=== PATIENT | male | born 1955 | race Caucasian/White ===

== ENCOUNTER → 2016-05-12 | Outpatient (REF) | payer OTHER ==
[~2016-05-12] MED LIST: /ADVA50050 IN; /MOXI40TA PO; /PANT40TA PO; ADV250INH INH; ALB2.5NEB INH; ALBU0.5N IN; ALBU17IN INH; ALBU83IN INH; ALDA25TA2 PO; ALEV220C2 PO; ASPI1TAB PO; ASPI325T PO; ASPI81TA4 PO; CEFT500T PO; CHLORTHALIDONE PO; CLAR10CA3 PO; COMBAER6 INH; COMBIN INH; COMBVENT INH; DELT1TAB PO; DIGO0.12 PO; DOXY150C PO; ELIQ5TAB PO; EQ A1TAB12 PO; FLUT22IN INH; FURO40TA2 PO; IPRA2IN INH; IPRASOL4 INH; K-TA1TAB PO; LEVA500T PO; LEVO100T7 PO; LEVO75TA4 PO; LIPI80TA PO; LISI10TA4 PO; LOPR1TAB7 PO; METF500T PO; METO-207 PO; MICR10CA PO; MUCI600T34 PO; NEUR300C PO; NICO21DI4 TD; NITR4TASL SL; PLAV75TA38 PO; POTA95TA PO; POTA99TA PO; PRAV40TA2 PO; PRED10TA PO; PRED10TA2 PO; PRED20TA PO; SIMV40TA2 PO; SPIR1CAP INH; SPIRIVA INH; SYMB16INH INH; TIOT18INH INH; TOPR50TA PO; TUMS500C PO; TYLE325T5 PO; VITA100041 PO; VITACAP31 PO; VITAD1000T PO; VITAMIN D50000 UNT OR; ZEST1TAB5 PO; ZITH250T PO
[2016-05-12 13:22] LABS: ALBUMIN 3.7 GM/DL (3.2-5.2); ALBUMIN/GLOBULIN RATIO 1.16 (1.00-1.93); ALKALINE PHOSPHATASE 71 U/L (45-117); ALT/SGPT 25 U/L (12-78); ANION GAP 9 MEQ/L (8-16); AST/SGOT 14 U/L (15-37); BILIRUBIN,TOTAL 0.5 MG/DL (0.2-1.0); BLOOD UREA NITROGEN 17 MG/DL (7-18); CALCIUM LEVEL 8.8 MG/DL (8.8-10.2); CARBON DIOXIDE LEVEL 35 MEQ/L (21-32); CHLORIDE LEVEL 98 MEQ/L (98-107); CREATININE FOR GFR 1.14 MG/DL (0.70-1.30); FREE T4 1.03 NG/DL (0.76-1.46); GLOMERULAR FILTRATION RATE > 60.0 (>49); GLUCOSE, FASTING 103 MG/DL (80-110); POTASSIUM SERUM 4.5 MEQ/L (3.5-5.1); SODIUM LEVEL 142 MEQ/L (136-145); TOTAL PROTEIN 6.9 GM/DL (6.4-8.2)
== END ==
LOC: M SFHCADAM 09:40
PROVIDERS: ATTEND Family Medicine
DX: E11.9 Type 2 diabetes mellitus without complications (principal); E03.9 Hypothyroidism, unspecified

== ENCOUNTER 2016-06-01 15:49 | Inpatient (IN) | payer OTHER ==
[~2016-06-01] VITALS: Ht 188 cm; Wt 150.5 kg
[2016-06-01] MEDS ORDERED: SPIR25TA2 PO (16:16)
[2016-06-01] MEDS ORDERED: AMIO20TA PO (16:16)
[2016-06-01] MEDS: METOPROLOL 5 MG/5 ML VIAL IV SCH ×3 (17:45→18:12)
[2016-06-01 17:50] LABS: INR 1.09
[2016-06-01 17:53] LABS: BASO % 0.3 % (0.0-1.0); EOS # 0.2 K/mm3 (0.0-0.50); EOS % 1.5 % (0.0-3.0); LARGE UNSTAINED CELL # 0.3 K/mm3 (0.0-0.4); LYMPH # 1.6 K/mm3 (1.5-4.5); LYMPH % 14.6 % (24.0-44.0); MEAN CORPUSCULAR HEMOGLOBIN 32.7 pg (27.0-33.0); MEAN CORPUSCULAR HGB CONC 32.9 g/dl (32.0-36.5); MEAN CORPUSCULAR VOLUME 99.2 fl (80.0-96.0); MONO # 0.6 K/mm3 (0.0-0.8); MONO % 5.5 % (0.0-5.0); NEUTROPHILS # 8.4 K/mm3 (1.8-7.7); NEUTROPHILS % 75.1 % (36.0-66.0); PLATELET COUNT, AUTOMATED 192 k/mm3 (150-450); RED CELL DISTRIBUTION WIDTH 12.6 % (11.5-14.5); WHITE BLOOD COUNT 11.2 K/mm3 (4.0-10.0)
[2016-06-01 17:57] LABS: ANION GAP 5 MEQ/L (8-16); BLOOD UREA NITROGEN 21 MG/DL (7-18); CALCIUM LEVEL 8.4 MG/DL (8.8-10.2); CARBON DIOXIDE LEVEL 34 MEQ/L (21-32); CHLORIDE LEVEL 101 MEQ/L (98-107); CREATININE FOR GFR 1.28 MG/DL (0.70-1.30); FREE T4 1.05 NG/DL (0.76-1.46); GLOMERULAR FILTRATION RATE > 60.0 (>49); GLUCOSE, FASTING 131 MG/DL (80-110); POTASSIUM SERUM 3.7 MEQ/L (3.5-5.1); SODIUM LEVEL 140 MEQ/L (136-145)
[2016-06-01] MEDS ORDERED: MUCI1TAB18 PO (18:13)
[2016-06-01] MEDS ORDERED: BENZ100C5 PO (18:13)
[2016-06-01] MEDS ORDERED: METO100T PO (18:13)
[2016-06-01] MEDS ORDERED: ELIQ5TAB PO (18:13)
[2016-06-01] MEDS ORDERED: ASPI1TAB PO (18:13)
[2016-06-01] MEDS ORDERED: LISI-542 PO (18:13)
--- NOTE | 2016-06-01 18:26 | REP ---
CHEST, PA AND LATERAL: COMPARISON: 03/20/2016, a portable exam. The increased interstitial markings seen on the prior examination are stable consistent with mild chronic fibrotic changes. No acute patchy parenchymal opacities or pleural effusions have developed. The cardiomediastinal silhouette is stable. The heart is mildly enlarged. The right CP angle is clear. The left CP angle has not been included on the radiograph. The osseous structures are stable and intact. IMPRESSION: Stable appearing chronic changes without plain radiographic evidence of acute cardiopulmonary disease. Signed by Yonny Watkins DO 06/01/2016 07:08 P
[2016-06-01] MEDS: HumaLOG INSULIN (NovoLOG) PER UNIT SC SCH (21:00)
[2016-06-01 22:48] VITALS: BP 131/90
[2016-06-01 23:59] VITALS: BP 98/60
[2016-06-02] VITALS (11 sets, daily range): BP systolic 116–143; BP diastolic 63–95
[2016-06-02] MEDS ORDERED: GLUCOSE 4 GM CHEW TABLET PO PRN
[2016-06-02] MEDS ORDERED: GLUCAGON FOR INJ 1 MG VIAL (J1610) SC PRN
[2016-06-02] MEDS: ATORVASTATIN 20 MG TAB PO SCH ×2 (00:36→21:53)
[2016-06-02] MEDS: FUROSEMIDE 40 MG TAB PO SCH ×3 (00:36→21:54)
[2016-06-02] MEDS: APIXABAN 5 MG TAB (ELIQUIS) PO SCH ×3 (00:36→21:54)
[2016-06-02] MEDS: AMIODARONE 200 MG TAB (PACERONE) PO SCH ×3 (00:37→21:53)
[2016-06-02] MEDS: METOPROLOL TARTRATE 100 MG TAB PO SCH ×3 (00:37→21:54)
[2016-06-02] MEDS ORDERED: DEXTROSE 50% 50 ML SYRINGE IV PRN ×2 (01:30)
[2016-06-02] MEDS: SYMBICORT 160/4.5MCG INHALER 6GM INH SCH ×3 (01:43→20:59)
--- NOTE | 2016-06-02 03:05 | HPE ---
DATE OF ADMISSION: 06/01/2016 REASON FOR ADMISSION: Atrial flutter. HISTORY OF PRESENT ILLNESS: The patient is a 61-year-old male with past medical history significant for COPD on two liters nasal cannula, obstructive sleep apnea on CPAP, atrial fibrillation, history of NC, diabetes, hypothyroidism, diastolic congestive heart failure presented to the emergency room from Dr. Mahoney office who instructed him to come to the emergency room. He went for a routine visit, she found him to be tachycardiac and short of breath. He was not on his oxygen at the time stating he was running low and left it in the car. He normally wears four liters of oxygen with activity and two liters at rest. He presented to the emergency room. He was found to be hypoxic and in atrial flutter with a rate into the 130s. Hospitalist was called for the admission. The patient denied any chest pain at this time. Denies any headaches, diaphoresis. Denies any shortness of breath. He is currently satting 97% on four liters nasal cannula. REVIEW OF SYSTEMS: 12-point review of systems was obtained all of which was negative except for those mentioned above. PAST MEDICAL HISTORY: Significant for COPD on four liters nasal cannula, obstructive sleep apnea on CPAP, atrial fibrillation, diabetes, hypothyroidism, congestive heart failure with diastolic dysfunction, CAD was cardiac stents, NC in 2013, hypertension, hyperlipidemia, history of PE. PAST SURGICAL HISTORY: Significant for cardiac stent and back surgery L3-4, IVC filter placement, left wrist surgery and vasectomy. ALLERGIES TO MEDICATIONS: None. MEDICATIONS: Include metformin, aspirin, spironolactone, Lasix, metoprolol, levothyroxine, Eliquis, atorvastatin, amiodarone and lisinopril. SOCIAL HISTORY: The patient states he has history of smoking one pack per day for 40 years but quit three months ago. He states he drinks about one to two beers a day. Lives at home with his and child. FAMILY HISTORY: Noncontributory. PHYSICAL FINDINGS: Blood pressure was 135/95, pulse 117-129, temperature 97.2, pulse ox 95% on four liters nasal cannula. HEENT: Pupils equal, round and react to light and accommodation. NECK: Supple. No jugular venous distention. LUNGS: Clear to auscultation bilaterally. CARDIAC: Tachycardiac, regular rate and rhythm. ABDOMEN: Soft, nontender, nondistended. EXTREMITIES: +2 edema bilaterally. NEURO: Cranial nerves II-XII grossly intact. No focal deficits. LABORATORY FINDINGS: WBCs 11.2, hemoglobin 13.9, hematocrit 42.2, platelet count 192. Sodium 140, potassium 3.7, chloride 101, BUN 21, creatinine 1.28, fasting glucose 131, TSH 2.96, T4 1.05, BNP 26.6, troponin less than 0.02. Chest x-ray was done in the emergency room which showed stable appearing chronic changes without plane radiographic evidence of acute cardiopulmonary disease. ASSESSMENT AND PLAN: 1. Atrial flutter. The patient normally has history of atrial fibrillation. He was on digoxin in the past and was switched two months ago to amiodarone. He is also on Eliquis and metoprolol. He sees Dr. Alcaraz outpatient. He was to be scheduled for cardioversion in two weeks, but he presented to Dr. Mahoney office today and was found to be tachycardic and was sent to the hospital. Will defer to primary care team to consult cardiology. His rate is currently in the 117-120 range. He denies any chest pain at this time. We will resume the patient's home medication. Continue to monitor on telemetry. 2. History of COPD on four liters. Patient is currently satting in the mid 90s on four liters. We will continue while he is in the hospital. 3. History of obstructive sleep apnea. Continue CPAP. 4. History of diabetes. We will start the patient on insulin sliding scale with Accu-Cheks before meals and at bedtime and consistent carb diet. 5. Hypothyroidism. The patient is on levothyroxine; we will continue. His TSH is 2.96 and T4 1.05. 6. History of diastolic congestive heart failure. He currently appears to be compensating, does not appear to be in any acute congestive heart failure exacerbation. We will continue his spironolactone and Lasix on regular doses. 7. History of coronary artery disease status post filter 8. History of hypertension. 9. History of hyperlipidemia. 10. History of PE status post IVC filter. The patient is also on Eliquis at this time. 11. DVT prophylaxis. The patient's Eliquis.
[2016-06-02 05:55] LABS: MEAN CORPUSCULAR HEMOGLOBIN 32.8 pg (27.0-33.0); MEAN CORPUSCULAR HGB CONC 32.7 g/dl (32.0-36.5); MEAN CORPUSCULAR VOLUME 100.1 fl (80.0-96.0); RED CELL DISTRIBUTION WIDTH 12.5 % (11.5-14.5); WHITE BLOOD COUNT 9.7 K/mm3 (4.0-10.0)
[2016-06-02 06:12] LABS: ALBUMIN/GLOBULIN RATIO 0.79 (1.00-1.93); ALKALINE PHOSPHATASE 58 U/L (45-117); ALT/SGPT 16 U/L (12-78); ANION GAP 5 MEQ/L (8-16); AST/SGOT 12 U/L (15-37); BILIRUBIN,TOTAL 0.5 MG/DL (0.2-1.0); BLOOD UREA NITROGEN 16 MG/DL (7-18); CALCIUM LEVEL 8.4 MG/DL (8.8-10.2); CARBON DIOXIDE LEVEL 34 MEQ/L (21-32); CHLORIDE LEVEL 101 MEQ/L (98-107); CREATININE FOR GFR 0.92 MG/DL (0.70-1.30); GLOMERULAR FILTRATION RATE > 60.0 (>49); GLUCOSE, FASTING 108 MG/DL (80-110); POTASSIUM SERUM 3.8 MEQ/L (3.5-5.1); SODIUM LEVEL 140 MEQ/L (136-145); TOTAL PROTEIN 6.8 GM/DL (6.4-8.2)
[2016-06-02] MEDS: LEVOTHYROXINE 0.075 MG TAB (75 MCG) PO SCH (06:43)
[2016-06-02] MEDS: TIOTROPIUM INHALER/CAPSULE (SPIRIVA) INH SCH (07:26)
[2016-06-02] MEDS ORDERED: HumaLOG INSULIN (NovoLOG) PER UNIT SC SCH ×2 (07:30→21:00)
[2016-06-02] MEDS: HumaLOG INSULIN (NovoLOG) PER UNIT SC SCH ×4 (08:16→21:49)
[2016-06-02] MEDS: SPIRONOLACTONE 25 MG TAB PO SCH (08:17)
[2016-06-02] MEDS: ASPIRIN 81 MG ENTERIC TAB PO SCH (08:17)
[2016-06-02] MEDS: METOPROLOL 5 MG/5 ML VIAL IV SCH (08:18)
[2016-06-02] MEDS: ALBUTEROL SULFATE 2.5 MG/0.5 ML INH NEB SOLN NEB PRN ×4 (08:32→23:15)
--- NOTE | 2016-06-02 08:44 | CR ---
DATE OF CONSULTATION: 06/01/2016 REFERRING PHYSICIAN: Dr. Langley HISTORY OF PRESENT ILLNESS: Mr. Marquez is known to me. He is a 61-year-old, morbidly obese man who has chronic obstructive pulmonary disease (COPD) and also has had persistent atrial fibrillation/flutter since March 2016. He was actually seen in my office yesterday, but later was seen in the office of Dr. Mahoney and was sent to the hospital because of dyspnea. He does have [place] [employer] Class III almost IV dyspnea which has been chronic. He denies any chest pain and there have not been any unusual events as of lately. He was found in the emergency room to be in atrial flutter with suboptimally controlled rate typically averaging around 110 beats per minute. He was already set up for direct current (DC) cardioversion on an outpatient basis, but now when he is hospitalized, will proceed with it immediately. PAST MEDICAL HISTORY: 1. Severe COPD. The last spirometry in April 2016 revealed 49% FVC and 25% FEV-1 2. Obstructive sleep apnea, on CPAP. 3. Hypertension. 4. Coronary artery disease. 5. Obesity. 6. Type 2 diabetes. 7. Remote history of pulmonary embolism. 8. Chronic diastolic congestive heart failure. Last echocardiogram was in March 2016 at [facility] ([facility] It was a somewhat limited study corresponding to his body weight, but revealed preserved left ventricular systolic function, grade 2 diastolic dysfunction, no valvular disease, and at least moderate pulmonary hypertension. OUTPATIENT MEDICATIONS: - amiodarone 200 twice a day - albuterol - aspirin 81 a day - Lipitor 80 a day - Combivent - Eliquis 5 twice a day - Flovent - furosemide 40 mg twice a day - levothyroxine 75 a day - metformin - metoprolol 100 twice a day - nitroglycerin as needed - spironolactone 25 a day - Symbicort - Ventolin SURGICAL HISTORY: Positive for L3-4 discectomy and fracture repair of left arm. FAMILY HISTORY: Positive for coronary artery disease (CAD). His father of myocardial infarction ([place]) in his 60s and brother had congestive heart failure (CHF) and atrial fibrillation and in his 50s. SOCIAL HISTORY: The patient is . He was a smoker, but quit in March 2016. REVIEW OF SYSTEMS: He does have shortness of breath, worse with laying down, but denies any chest pain or palpitations. There is no history of stroke or history of bleeding problems. No significant weight changes, even though he did put on weight lately after he quit smoking. No genitourinary symptoms. No janet bleeding. He has chronic back pain. No headaches. No psychiatric symptoms. PHYSICAL EXAMINATION: Vital signs this morning with blood pressure 130/95. Heart rate fluctuates from 80s to 120s, but on average is 110. He has atrial flutter with variable AV conduction. Saturation is in high 90s on 4 liters of oxygen by nasal cannula. His jugular venous pulse (JVP) does not look high. Lungs are relatively clear to auscultation. Heart exam reveals muffled heart sounds corresponding to his large body habitus, but I do not appreciate any murmur, gallop or rub. Abdomen is obese, but soft and nontender. Extremities have trace edema. Neurologically, he is alert and oriented and appropriate. I do not appreciate any skin lesions. ECG: Reveals atrial flutter with variable conduction and uncontrolled rate. LABORATORY: Hemoglobin 30.3, hematocrit 40 and platelet count 184,000. WBC 9.7. Basic metabolic panel with potassium 3.8, BUN 16, creatinine 0.9, glucose 108. Cardiac enzymes negative times two. Albumin is 3.0. His chest x-ray reveals chronic fibrotic changes, but no definite congestive heart failure. ASSESSMENT AND PLAN: Mr. Marquez is a 61-year-old man who has advanced chronic obstructive pulmonary disease (COPD) and more recently complicated with atrial flutter which is not well rate-controlled. He has been anticoagulated for almost two months consistently and he also has been on amiodarone for over a month. Consequently, I believe it is appropriate to proceed with DC cardioversion, which is probably the only intervention from my field that potentially can improve his symptoms. We already talked about this on an outpatient basis yesterday, but I had him sign the same consent in the hospital and will try to arrange for the procedure later this afternoon. I explained that there are potential complications including pneumonia and stroke and potentially even need for pacemaker, but I do believe that the procedure gives him the only chance to actually start feeling slightly better. Otherwise, I would continue his chronic medications. He probably will need adjusted beta-claudio doses depending on his heart rate while he is in sinus rhythm.
[2016-06-02] MEDS ORDERED: LISINOPRIL 5 MG TAB PO SCH (09:00)
--- NOTE | 2016-06-02 09:16 | IPNPDOC ---
Subjective Date Seen The patient was seen on 06/02/16. Subjective Chief Complaint/HPI The patient is a 61-year-old male admitted with a reason for visit of Atrial Flutter W/Rvr. Events since last encounter No SOB. Feels generally well. Constitutional: Denies: Chills, Fever Pulmonary: Denies: Cough, Dyspnea Cardiovascular: Denies: Chest Pain, Edema, Orthopnea, Palpitations Gastrointestinal: Denies: Abdominal Pain, Constipation, Diarrhea, Nausea, Vomiting Objective Physical Examination General Exam: Positive: Alert, No Acute Distress Chest Exam: Positive: Diminished (NO W/R/R) Heart Exam: Positive: Irregular Rhythm (rate 102) Abdomen Exam: Positive: Normal bowel sounds, Soft, Negative: Tenderness Male Exam: Negative: Edema Assessment /Plan Problems (1) Atrial flutter with rapid ventricular response Status: Acute Response to Treatment: Improving Problem Text: HR a little better since receiving IV Lopressor x 1 last night and oral Metoprolol this am. Dr. Parish seeing patient in consultation Remains on Amiodarone On eliquis for anticoagulation (2) COPD exacerbation Onset Date: 03/26/2014 Status: Chronic Response to Treatment: Stable (3) Diastolic CHF, acute on chronic Status: Chronic Response to Treatment: Stable Problem Text: On Lasix 40 mg BID (4) Diabetes mellitus type 2 in obese Status: Chronic Response to Treatment: Stable (5) Coronary artery disease Status: Chronic Response to Treatment: Stable Plan/VTE VTE Prophylaxis Ordered?: Yes (Eliquis) VS, I&O, 24H, Fishbone Vital Signs/I&O Vital Signs Date Time Temp Pulse Resp B/P Pulse Ox O2 Delivery O2 Flow Rate FiO2 06/02/16 08:18 87 130/95 06/02/16 07:59 Nasal Cannula 4.0 06/02/16 07:30 96.2 22 93 I&O- Last 24 Hours up to 6 AM 06/02/16 06:00 Intake Total 180 ml Output Total 400 ml Balance -220 ml Laboratory Data 24H LABS Laboratory Tests 2 06/01/16 16:59: Activated Partial Thromboplast Time 28.1, Anion Gap 5L, B-Type Natriuretic Peptide 26.6, White Blood Count 11.2H, Red Blood Count 4.26L, Hemoglobin 13.9L, Hematocrit 42.2, Mean Corpuscular Volume 99.2H, Mean Corpuscular Hemoglobin 32.7 , Mean Corpuscular Hemoglobin Concent 32.9, Red Cell Distribution Width 12.6, Platelet Count 192, Neutrophils (%) (Auto) 75.1H, Lymphocytes (%) (Auto) 14.6L, Monocytes (%) (Auto) 5.5H, Eosinophils (%) (Auto) 1.5, Basophils (%) (Auto) 0.3 , Neutrophils # (Auto) 8.4H, Lymphocytes # (Auto) 1.6, Monocytes # (Auto) 0.6, Eosinophils # (Auto) 0.2, Basophils # (Auto) 0.0, Blood Urea Nitrogen 21H, Creatinine 1.28, Sodium Level 140, Potassium Level 3.7, Chloride Level 101, Carbon Dioxide Level 34H, Calcium Level 8.4L, Total Creatine Kinase 93, Creatine Kinase MB 2.1, Creatine Kinase MB Relative Index 2.25, Free Thyroxine 1.05, Glomerular Filtration Rate > 60.0, Large Unclassified Cells # 0.3, Large Unclassified Cells % 3.0, Prothromb Time International Ratio 1.09, Prothrombin Time 14.2, Thyroid Stimulating Hormone (TSH) 2.960, Troponin I < 0.02 06/02/16 00:30: Bedside Glucose (Misc Panel) 167H 06/02/16 01:36: Total Creatine Kinase 85, Creatine Kinase MB 1.9, Creatine Kinase MB Relative Index 2.23, Troponin I < 0.02 06/02/16 05:30: Anion Gap 5L, Blood Urea Nitrogen 16, Creatinine 0.92, Sodium Level 140, Potassium Level 3.8, Chloride Level 101, Carbon Dioxide Level 34H, Calcium Level 8.4L, Glomerular Filtration Rate > 60.0, Aspartate Amino Transf (AST/SGOT ) 12L, Alanine Aminotransferase (ALT/SGPT) 16, Alkaline Phosphatase 58, Total Bilirubin 0.5, Total Protein 6.8, Albumin 3.0L, Albumin/Globulin Ratio 0.79L CBC/BMP Laboratory Tests 06/01/16 16:59 Calcium Level 8.4 L, Total Creatine Kinase 93, Red Blood Count 4.26 L, Mean Corpuscular Volume 99.2 H, Mean Corpuscular Hemoglobin 32.7, Mean Corpuscular Hemoglobin Concent 32.9, Red Cell Distribution Width 12.6, Neutrophils (%) (Auto ) 75.1 H, Lymphocytes (%) (Auto) 14.6 L, Monocytes (%) (Auto) 5.5 H, Eosinophils (%) (Auto) 1.5, Basophils (%) (Auto) 0.3, Neutrophils # (Auto) 8.4 H , Lymphocytes # (Auto) 1.6, Monocytes # (Auto) 0.6, Eosinophils # (Auto) 0.2, Basophils # (Auto) 0.0 06/02/16 05:30 Calcium Level 8.4 L, Red Blood Count 4.05 L, Mean Corpuscular Volume 100.1 H, Mean Corpuscular Hemoglobin 32.8, Mean Corpuscular Hemoglobin Concent 32.7, Red Cell Distribution Width 12.5, Aspartate Amino Transf (AST/SGOT) 12 L, Alanine Aminotransferase (ALT/SGPT) 16, Alkaline Phosphatase 58, Total Bilirubin 0.5, Total Protein 6.8, Albumin 3.0 L BLANCA PUGA PA-C Jun 02, 2016 09:16
[2016-06-02] MEDS ORDERED: PROPOFOL 200 MG/20 ML VIAL As Ordered ONE (16:45)
[2016-06-02] MEDS ORDERED: LIDOCAINE 2% INJ 100 MG/5 ML SDV (FOR ANES.) As Ordered ONE (16:45)
--- NOTE | 2016-06-02 19:58 | RO ---
DATE OF PROCEDURE: 06/02/2016 PREPROCEDURE DIAGNOSIS: Atrial flutter. POSTPROCEDURE DIAGNOSIS: Atrial flutter. OPERATIVE PROCEDURE: DC cardioversion. SURGEON: Radha Alcaraz MD CHECKERING MACHINE OPERATOR: None ANESTHESIA: MD Sammy Carmona CRNA BRIEF HISTORY: Mr. Marquez is a pleasant 61-year-old male who has persistent atrial flutter since at least April 2016. He has been treated with administration of amiodarone and beta claudio and in spite of accomplishing reasonable, although imperfect rate control he is still very symptomatic with prominent dyspnea. Consequently, we decided to proceed with DC cardioversion especially when he was hospitalized for worsening symptoms. The nature of the procedure, its possible complications were discussed with him and his on outpatient basis and then again during his admission. The patient did sign appropriate consent. The procedure was performed in recovery room. DESCRIPTION OF PROCEDURE: Anesthesiology was provided by Dr. Cosmo Damon and Sammy Figueredo CRNA. The patient received a total of 40 mg of IV lidocaine and 110 mg of IV propofol. When appropriate level of sedation was accomplished he was cardioverted with defibrillator patches applied in anterior position with 200 joules in a synchronized mode. It led to samaritan of sinus mechanism without post conversion pause. He tolerated the procedure well and currently 12-lead EKG is pending. CONCLUSION: Successful DC cardioversion of atrial flutter into sinus mechanism. After brief observation in recovery room he was being moved back to PCU. He will be able to resume oral intake in approximately 1 hour. [facility]
--- NOTE | 2016-06-02 20:38 | ECGEPIP ---
Stationary ECG Study 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
[2016-06-03] MEDS ORDERED: SLF 3 ML SYR IV PRN (00:15)
[2016-06-03 05:40] VITALS: BP 103/68
[2016-06-03 05:43] LABS: MEAN CORPUSCULAR HEMOGLOBIN 33.1 pg (27.0-33.0); MEAN CORPUSCULAR HGB CONC 32.9 g/dl (32.0-36.5); MEAN CORPUSCULAR VOLUME 100.6 fl (80.0-96.0); RED CELL DISTRIBUTION WIDTH 12.5 % (11.5-14.5)
[2016-06-03] MEDS: LEVOTHYROXINE 0.075 MG TAB (75 MCG) PO SCH (05:45)
[2016-06-03] MEDS: SLF 3 ML SYR IV SCH ×2 (05:45→14:00)
[2016-06-03 06:19] LABS: ALBUMIN/GLOBULIN RATIO 0.81 (1.00-1.93); ALKALINE PHOSPHATASE 59 U/L (45-117); ALT/SGPT 15 U/L (12-78); ANION GAP 8 MEQ/L (8-16); AST/SGOT 13 U/L (15-37); BILIRUBIN,TOTAL 0.4 MG/DL (0.2-1.0); BLOOD UREA NITROGEN 18 MG/DL (7-18); CALCIUM LEVEL 8.4 MG/DL (8.8-10.2); CARBON DIOXIDE LEVEL 32 MEQ/L (21-32); CHLORIDE LEVEL 101 MEQ/L (98-107); GLOMERULAR FILTRATION RATE > 60.0 (>49); GLUCOSE, FASTING 100 MG/DL (80-110); POTASSIUM SERUM 3.8 MEQ/L (3.5-5.1); SODIUM LEVEL 141 MEQ/L (136-145); TOTAL PROTEIN 6.7 GM/DL (6.4-8.2)
[2016-06-03] MEDS: HumaLOG INSULIN (NovoLOG) PER UNIT SC SCH ×3 (07:29→17:45)
[2016-06-03] MEDS: TIOTROPIUM INHALER/CAPSULE (SPIRIVA) INH SCH (07:44)
[2016-06-03] MEDS: SYMBICORT 160/4.5MCG INHALER 6GM INH SCH (07:44)
[2016-06-03 08:00] VITALS: BP 132/80
--- NOTE | 2016-06-03 08:33 | IPNPDOC ---
Subjective Date Seen The patient was seen on 06/03/16. Subjective Chief Complaint/HPI The patient is a 61-year-old male admitted with a reason for visit of Atrial Flutter W/Rvr. Events since last encounter Pt states he is feeling better. Denies CP, SOB, Abd pain. Constitutional: Denies: Chills, Fever Pulmonary: Denies: Dyspnea Cardiovascular: Denies: Chest Pain Gastrointestinal: Denies: Abdominal Pain, Nausea, Vomiting Objective Physical Examination General Exam: Positive: Alert, No Acute Distress Neck Exam: Positive: Supple, Negative: JVD Chest Exam: Positive: Diminished (NO W/R/R) Heart Exam: Positive: Rate Normal, Regular Rhythm Abdomen Exam: Positive: Normal bowel sounds, Soft, Negative: Tenderness Male Exam: Negative: Edema Extremity Exam: Negative: Edema Assessment /Plan Problems (1) Atrial flutter with rapid ventricular response Status: Acute Response to Treatment: Improving Problem Text: 06/03 - Cardiology following. Pt was cardioverted last night. Now in SR. Rate controlled. On Amiodarone 200 mg BID. On Lopressor 100 mg BID. On Eliquis 5 mg BID. 3/3 - HR a little better since receiving IV Lopressor x 1 last night and oral Metoprolol this am. Dr. Parish seeing patient in consultation Remains on Amiodarone On eliquis for anticoagulation (2) COPD exacerbation Onset Date: 03/26/2014 Status: Chronic Response to Treatment: Stable Problem Specific Plan: Monitor Clinically Problem Text: On Symbicort. (3) Diastolic CHF, acute on chronic Status: Chronic Response to Treatment: Stable Problem Specific Plan: Monitor Clinically Problem Text: On Lasix 40 mg BID (4) Diabetes mellitus type 2 in obese Status: Chronic Response to Treatment: Stable Problem Specific Plan: Monitor Clinically Problem Text: On SSI. (5) Coronary artery disease Status: Chronic Response to Treatment: Stable Problem Specific Plan: Monitor Clinically Plan/VTE VTE Prophylaxis Ordered?: Yes (Eliquis) VS, I&O, 24H, Fishbone Vital Signs/I&O Vital Signs Date Time Temp Pulse Resp B/P Pulse Ox O2 Delivery O2 Flow Rate FiO2 06/03/16 08:00 96.6 68 18 132/80 96 Nasal Cannula 4.0 I&O- Last 24 Hours up to 6 AM 06/03/16 06:00 Intake Total 600 ml Output Total 1925 ml Balance -1325 ml Laboratory Data 24H LABS Laboratory Tests 2 06/02/16 11:52: Bedside Glucose (Misc Panel) 118H 06/02/16 17:50: Bedside Glucose (Misc Panel) 93 06/02/16 20:51: Bedside Glucose (Misc Panel) 156H 06/03/16 05:03: Blood Urea Nitrogen 18, Creatinine 0.90, Sodium Level 141, Potassium Level 3.8, Chloride Level 101, Carbon Dioxide Level 32, Calcium Level 8.4L, Aspartate Amino Transf (AST/SGOT) 13L, Alanine Aminotransferase (ALT/SGPT) 15, Alkaline Phosphatase 59, Total Bilirubin 0.4, Total Protein 6.7, Albumin 3.0L, Albumin/ Globulin Ratio 0.81L, Anion Gap 8, Glomerular Filtration Rate > 60.0 CBC/BMP Laboratory Tests 06/03/16 05:03 Calcium Level 8.4 L, Aspartate Amino Transf (AST/SGOT) 13 L, Alanine Aminotransferase (ALT/SGPT) 15, Alkaline Phosphatase 59, Total Bilirubin 0.4, Total Protein 6.7, Albumin 3.0 L, Red Blood Count 4.01 L, Mean Corpuscular Volume 100.6 H, Mean Corpuscular Hemoglobin 33.1 H, Mean Corpuscular Hemoglobin Concent 32.9, Red Cell Distribution Width 12.5 Junior Solano Jun 03, 2016 08:33
[2016-06-03 09:05] VITALS: BP 132/80
[2016-06-03] MEDS: AMIODARONE 200 MG TAB (PACERONE) PO SCH (09:05)
[2016-06-03] MEDS: METOPROLOL TARTRATE 100 MG TAB PO SCH (09:05)
[2016-06-03] MEDS: FUROSEMIDE 40 MG TAB PO SCH (09:05)
[2016-06-03] MEDS: APIXABAN 5 MG TAB (ELIQUIS) PO SCH (09:05)
[2016-06-03] MEDS: SPIRONOLACTONE 25 MG TAB PO SCH (09:05)
[2016-06-03] MEDS: ASPIRIN 81 MG ENTERIC TAB PO SCH (09:05)
--- NOTE | 2016-06-03 10:40 | IPN ---
DATE OF SERVICE: 06/03/2016 Mr. Marquez tells me that he is feeling better. He is still short of breath but feels that he has more energy, was able to sleep, and overall feels that there has been some improvement. He denies any chest pain or sensation of palpitations. His vital signs: Blood pressure 132/80, heart rate is in 60s and 70s, sinus rhythm. He is afebrile. Saturation is high 90s on 4 liters of oxygen or bilateral positive airway pressure (BiPAP). Fluid balance yesterday was approximately 600 negative. Weight is still 150 kg. He is alert and oriented and appropriate. His jugular venous pressure (JVP) is difficult to estimate due to his body habitus but does not appear grossly elevated. Lungs are relatively clear to auscultations. I do not appreciate any wheezing. Heart examination: Regular rhythm. Muffled heart sound due to his size. Abdomen is soft but protuberant. There is trace edema. Neurologically, he is intact. No skin lesions. Laboratory-rubi, normal basic metabolic panel. CBC reveals hemoglobin 13.3, hematocrit 40, platelet count 181,000. ASSESSMENT AND PLAN: Mr. Marquez is a 61-year-old man who has advanced chronic obstructive pulmonary disease (COPD), undoubtedly also some component of restrictive lung disease. He presented with atrial flutter since probably about April or maybe even March. Initially, was somewhat difficult to rate control, and he was on high doses of beta blockers and was started on amiodarone a little more than a month ago. Yesterday, I performed cardioversion. The procedure was successful, and he now is in sinus rhythm. I am going to leave his medications unchanged. He has been anticoagulated with apixaban, and that will be continued. I am going to leave amiodarone at 400 mg daily for another at least a week. He did not get the initial high loading dose; and consequently, I will wait at least another week or two before we cut the dose to maintenance 200 mg a day. I do not appreciate much of any evidence for congestive heart failure. I communicated with HARMONY Adame. From my perspective, he can be discharged home. I will arrange for outpatient followup.
[2016-06-03 12:00] VITALS: BP 118/69
[2016-06-03] MEDS: ALBUTEROL SULFATE 2.5 MG/0.5 ML INH NEB SOLN NEB PRN ×2 (13:52→16:39)
[2016-06-03 16:00] VITALS: BP 90/67
--- NOTE | 2016-06-04 10:10 | DSES ---
DATE OF ADMISSION: 06/01/2016 DATE OF DISCHARGE: 06/03/2016 PRIMARY CARE PROVIDER: Bakari Langley MD ATTENDING PHYSICIAN: Karl Miller MD CONSULTANTS: Radha Alcaraz MD HISTORY OF PRESENT ILLNESS: Gilmer Marquez is a 61-year-old male patient who was transported from his pulmonology doctors to the emergency room for tachycardia and shortness of breath. Workup in the ER showed atrial flutter. 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 Alcaraz was consulted. The patient was admitted to PCU. Dr. Alcaraz performed cardioversion on the patient and the atrial flutter resolved and the patient was in sinus rhythm. Dr. Alcaraz advises leaving medications unchanged. The patient will remain on current dose of amiodarone 200 mg p.o. b.i.d., Lopressor 100 mg p.o. b.i.d., and will continue with anticoagulation with Eliquis 5 mg p.o. b.i.d. The patient, as noted, was in sinus rhythm and Dr. Alcaraz felt the patient would be stable for discharge home. The patient remained on Lasix for history of congestive heart failure. He remained on Symbicort for a history of chronic obstructive pulmonary disease (COPD). He will be discharged home today. PHYSICAL EXAMINATION: Temperature 96.6, pulse 68, respiratory rate 18, blood pressure is 132/80, pulse oximetry 96% on supplemental oxygen 4 liters by nasal cannula. GENERAL: The patient is alert, oriented times three. No acute distress. CHEST: Diminished but clear. HEART: Regular rate and rhythm. ABDOMEN: Positive bowel sounds, soft, nontender. EXTREMITIES: No edema. LABORATORY DATA: WBC 8.0, hemoglobin 13.3, hematocrit 40.3, platelets 181. Sodium 141, potassium 3.8, chloride 101, carbon dioxide 32, BUN 18, creatinine 0.90, glucose 100, calcium 8.4, total bili 0.4, AST 13, ALT 15, alk phos 59, total protein 6.7, albumin 3.0. MEDICATIONS: - albuterol puffer two puffs every 4 hours as needed for shortness of breath - albuterol nebs every 4 hours shortness of breath - Combivent two puffs four times a day as needed for shortness of breath - DuoNebs every 4 hours as needed for shortness of breath - amiodarone 200 mg by mouth twice a day - Eliquis 5 mg by mouth twice a day - aspirin 81 mg by mouth daily - atorvastatin 80 mg by mouth at bedtime - Symbicort 160-4.5 two puffs inhaled twice a day - Flovent two puffs inhaled as needed for shortness of breath - furosemide 40 mg by mouth twice a day - Synthroid 75 mcg by mouth daily - metformin 500 mg by mouth twice a day - metoprolol 100 mg by mouth twice a day - Mucinex one tablet by mouth twice a day as needed for cough - nitroglycerin 0.4 mg sublingual as needed for chest pain - spironolactone 25 mg by mouth daily - Spiriva one inhalation daily DISCHARGE INSTRUCTIONS: Followup with primary care physician, Dr. Langley in one week. Followup with Dr. Alcaraz within a week per his instructions. Diet is no added salt diet, consistent carbohydrate diet. Activity as tolerated. DISCHARGE DIAGNOSES: Atrial flutter with rapid ventricular response. Chronic obstructive pulmonary disease (COPD) exacerbation. Diastolic congestive heart failure. Diabetes mellitus type 2. Coronary artery disease. cc: MD Bakari Somers MD
== END 2016-06-03 19:11 | disposition home or self-care (01) | DRG 201 ==
LOC: M ED 17:43 → M ED INP 20:17 → M PCU 22:34
PROVIDERS: ADMIT Internal Medicine; ATTEND Family Medicine
PROC: 5A2204Z Restoration of Cardiac Rhythm, Single (ICD-10-PCS; principal; 2016-06-02 07:51)
DX: I48.92 Unspecified atrial flutter (principal); I50.33 Acute on chronic diastolic (congestive) heart failure; I27.2 Other secondary pulmonary hypertension; Z99.81 Dependence on supplemental oxygen; J44.1 Chronic obstructive pulmonary disease with (acute) exacerbation; Z68.41 Body mass index [BMI] 40.0-44.9, adult; I11.0 Hypertensive heart disease with heart failure; E66.01 Morbid (severe) obesity due to excess calories; G47.33 Obstructive sleep apnea (adult) (pediatric); I25.2 Old myocardial infarction; E03.9 Hypothyroidism, unspecified; E11.9 Type 2 diabetes mellitus without complications; I25.10 Atherosclerotic heart disease of native coronary artery without angina pectoris; E78.5 Hyperlipidemia, unspecified; Z86.711 Personal history of pulmonary embolism; Z95.5 Presence of coronary angioplasty implant and graft; Z79.84 Long term (current) use of oral hypoglycemic drugs; Z79.82 Long term (current) use of aspirin; Z79.01 Long term (current) use of anticoagulants; Z87.891 Personal history of nicotine dependence; I48.91 Unspecified atrial fibrillation; Z79.899 Other long term (current) drug therapy

== ENCOUNTER → 2016-08-23 | Outpatient (CLI) | payer OTHER ==
[~2016-08-23] MED LIST changes: +AMIO20TA PO; +BENZ100C5 PO; +LISI-542 PO; +METO100T PO; +MUCI1TAB18 PO; +SPIR25TA2 PO
[2016-08-23 14:28] LABS: MEAN CORPUSCULAR HEMOGLOBIN 34.6 pg (27.0-33.0); MEAN CORPUSCULAR HGB CONC 33.1 g/dl (32.0-36.5); MEAN CORPUSCULAR VOLUME 104.4 fl (80.0-96.0); RED CELL DISTRIBUTION WIDTH 12.6 % (11.5-14.5); WHITE BLOOD COUNT 10.2 K/mm3 (4.0-10.0)
[2016-08-23 14:46] LABS: ALBUMIN 3.6 GM/DL (3.2-5.2); ALBUMIN/GLOBULIN RATIO 1.03 (1.00-1.93); ALKALINE PHOSPHATASE 63 U/L (45-117); ALT/SGPT 31 U/L (12-78); ANION GAP 8 MEQ/L (8-16); AST/SGOT 21 U/L (15-37); BILIRUBIN,TOTAL 0.8 MG/DL (0.2-1.0); BLOOD UREA NITROGEN 21 MG/DL (7-18); CARBON DIOXIDE LEVEL 33 MEQ/L (21-32); CHLORIDE LEVEL 96 MEQ/L (98-107); CHOLESTEROL LEVEL 142 MG/DL (<200); CREATININE FOR GFR 1.24 MG/DL (0.70-1.30); FREE T4 1.05 NG/DL (0.76-1.46); GLOMERULAR FILTRATION RATE > 60.0 (>49); GLUCOSE, FASTING 117 MG/DL (80-110); POTASSIUM SERUM 4.9 MEQ/L (3.5-5.1); SODIUM LEVEL 137 MEQ/L (136-145); TOTAL PROTEIN 7.1 GM/DL (6.4-8.2); TRIGLYCERIDES LEVEL 102 MG/DL (<150)
== END ==
LOC: M WUC 11:31
PROVIDERS: ATTEND Family Medicine
DX: J44.1 Chronic obstructive pulmonary disease with (acute) exacerbation (principal); E11.9 Type 2 diabetes mellitus without complications

== ENCOUNTER → 2016-09-14 | Outpatient (CLI) | payer OTHER ==
[2016-09-14 17:33] LABS: CALCIUM LEVEL 8.9 MG/DL (8.8-10.2); CREATININE FOR GFR 1.3 MG/DL (0.70-1.30); GLOMERULAR FILTRATION RATE 59.4 (>49); POTASSIUM SERUM 4.7 MEQ/L (3.5-5.1)
== END ==
LOC: M WUC 13:50
PROVIDERS: ATTEND Internal Medicine Cardiovascular Disease
DX: I50.9 Heart failure, unspecified (principal)

== ENCOUNTER → 2016-10-16 | Outpatient (CLI) | payer OTHER ==
[~2016-10-16] MED LIST changes: +AMIO200T PO; -AMIO20TA PO; +ASPI81TA18 PO; -ASPI81TA4 PO; +LEVA1TAB2 PO; -LEVA500T PO; +METF500T13 PO; -METO-207 PO; -METO100T PO; +METO100T5 PO; +METO1TAB7 PO; +PLAV1TAB2 PO; -PLAV75TA38 PO
== END ==
LOC: M WUC 13:35
PROVIDERS: ATTEND Ophthalmology
DX: Z13.29 Encounter for screening for other suspected endocrine disorder (principal)

== ENCOUNTER → 2017-02-07 | Outpatient (CLI) | payer OTHER ==
[2017-02-07 19:27] LABS: MEAN CORPUSCULAR HEMOGLOBIN 33.2 pg (27.0-33.0); MEAN CORPUSCULAR HGB CONC 32.2 g/dl (32.0-36.5); MEAN CORPUSCULAR VOLUME 102.9 fl (80.0-96.0); PLATELET COUNT, AUTOMATED 202 10^3/uL (150-450); RED CELL DISTRIBUTION WIDTH 12.4 % (11.5-14.5); WHITE BLOOD COUNT 10.5 10^3/uL (4.0-10.0)
[2017-02-07 19:42] LABS: ALBUMIN 3.6 GM/DL (3.2-5.2); ALBUMIN/GLOBULIN RATIO 0.97 (1.00-1.93); ALKALINE PHOSPHATASE 74 U/L (45-117); ALT/SGPT 29 U/L (12-78); ANION GAP 11 MEQ/L (8-16); AST/SGOT 19 U/L (7-37); BILIRUBIN,TOTAL 0.4 MG/DL (0.2-1.0); BLOOD UREA NITROGEN 20 MG/DL (7-18); CALCIUM LEVEL 9.6 MG/DL (8.8-10.2); CARBON DIOXIDE LEVEL 31 MEQ/L (21-32); CHLORIDE LEVEL 99 MEQ/L (98-107); CREATININE FOR GFR 1.15 MG/DL (0.70-1.30); FREE T4 1.03 NG/DL (0.76-1.46); GLOMERULAR FILTRATION RATE > 60.0 (>49); GLUCOSE, FASTING 135 MG/DL (80-110); POTASSIUM SERUM 4.6 MEQ/L (3.5-5.1); SODIUM LEVEL 141 MEQ/L (136-145); TOTAL PROTEIN 7.3 GM/DL (6.4-8.2)
== END ==
LOC: M WUC 13:15
PROVIDERS: ATTEND Family Medicine
DX: J44.9 Chronic obstructive pulmonary disease, unspecified (principal); E11.9 Type 2 diabetes mellitus without complications; E03.9 Hypothyroidism, unspecified

== ENCOUNTER → 2017-02-12 | Outpatient (CLI) | payer OTHER ==
[2017-02-12 20:08] LABS: ANION GAP 8 MEQ/L (8-16); BLOOD UREA NITROGEN 22 MG/DL (7-18); CALCIUM LEVEL 9.2 MG/DL (8.8-10.2); CARBON DIOXIDE LEVEL 33 MEQ/L (21-32); CHLORIDE LEVEL 97 MEQ/L (98-107); CREATININE FOR GFR 1.26 MG/DL (0.70-1.30); GLOMERULAR FILTRATION RATE > 60.0 (>49); GLUCOSE, FASTING 117 MG/DL (80-110); POTASSIUM SERUM 4.2 MEQ/L (3.5-5.1); SODIUM LEVEL 138 MEQ/L (136-145)
== END ==
LOC: M WUC 13:27
PROVIDERS: ATTEND Family Medicine
DX: I50.32 Chronic diastolic (congestive) heart failure (principal)

== ENCOUNTER → 2017-02-28 | Outpatient (CLI) | payer OTHER ==
[2017-02-28 17:29] LABS: CREATININE FOR GFR 1.3 MG/DL (0.70-1.30); GLOMERULAR FILTRATION RATE 59.2 (>49); POTASSIUM SERUM 4.9 MEQ/L (3.5-5.1)
== END ==
LOC: M WUC 13:54
PROVIDERS: ATTEND Family Medicine
DX: I50.32 Chronic diastolic (congestive) heart failure (principal)

== ENCOUNTER → 2017-04-05 | Outpatient (CLI) | payer OTHER ==
[2017-04-05 16:56] LABS: ANION GAP 6 MEQ/L (8-16); BLOOD UREA NITROGEN 24 MG/DL (7-18); CALCIUM LEVEL 9.3 MG/DL (8.8-10.2); CARBON DIOXIDE LEVEL 34 MEQ/L (21-32); CHLORIDE LEVEL 100 MEQ/L (98-107); GLOMERULAR FILTRATION RATE > 60.0 (>49); GLUCOSE, FASTING 153 MG/DL (80-110); POTASSIUM SERUM 4.6 MEQ/L (3.5-5.1); SODIUM LEVEL 140 MEQ/L (136-145)
== END ==
LOC: M WUC 12:53
DX: I50.32 Chronic diastolic (congestive) heart failure (principal)
CPT/HCPCS: 80048

== ENCOUNTER → 2017-07-17 | Outpatient (CLI) | payer OTHER ==
[2017-07-17 16:37] LABS: HEMATOCRIT 42.2 % (42.0-52.0); HEMOGLOBIN 13.7 g/dl (13.5-17.5); MEAN CORPUSCULAR HEMOGLOBIN 33.1 pg (27.0-33.0); MEAN CORPUSCULAR HGB CONC 32.5 g/dl (32.0-36.5); MEAN CORPUSCULAR VOLUME 101.9 fl (80.0-96.0); PLATELET COUNT, AUTOMATED 233 10^3/uL (150-450); RED BLOOD COUNT 4.14 10^6/uL (4.30-6.10); RED CELL DISTRIBUTION WIDTH 12.3 % (11.5-14.5); WHITE BLOOD COUNT 12.6 10^3/uL (4.0-10.0)
[2017-07-17 17:05] LABS: ALBUMIN 3.6 GM/DL (3.2-5.2); ALBUMIN/GLOBULIN RATIO 0.86 (1.00-1.93); ALKALINE PHOSPHATASE 75 U/L (45-117); ALT/SGPT 26 U/L (12-78); ANION GAP 8 MEQ/L (8-16); AST/SGOT 18 U/L (7-37); BILIRUBIN,TOTAL 0.3 MG/DL (0.2-1.0); BLOOD UREA NITROGEN 18 MG/DL (7-18); CARBON DIOXIDE LEVEL 31 MEQ/L (21-32); CHLORIDE LEVEL 101 MEQ/L (98-107); CHOLESTEROL LEVEL 157 MG/DL (<200); CHOLESTEROL RISK RATIO 2.661 (<5); CREATININE FOR GFR 1.23 MG/DL (0.70-1.30); FREE T4 1.02 NG/DL (0.76-1.46); GLOMERULAR FILTRATION RATE > 60.0 (>49); GLUCOSE, FASTING 139 MG/DL (70-100); HDL CHOLESTEROL 59 MG/DL (>40); NON-HDL-C 98 MG/DL; POTASSIUM SERUM 4.6 MEQ/L (3.5-5.1); SODIUM LEVEL 140 MEQ/L (136-145); TOTAL PROTEIN 7.8 GM/DL (6.4-8.2); TRIGLYCERIDES LEVEL 105 MG/DL (<150)
[2017-07-17 17:33] LABS: ESTIMATED AVERAGE GLUCOSE 166 MG/DL (60-110); HEMOGLOBIN A1c 7.4 %
== END ==
LOC: M WUC 13:18
DX: I48.91 Unspecified atrial fibrillation (principal); E11.9 Type 2 diabetes mellitus without complications; E03.9 Hypothyroidism, unspecified; E78.2 Mixed hyperlipidemia
CPT/HCPCS: 84443

== ENCOUNTER → 2017-10-12 | Outpatient (CLI) | payer OTHER ==
[2017-10-12 16:44] LABS: ANION GAP 8 MEQ/L (8-16); BLOOD UREA NITROGEN 15 MG/DL (7-18); CALCIUM LEVEL 9.2 MG/DL (8.8-10.2); CARBON DIOXIDE LEVEL 33 MEQ/L (21-32); CHLORIDE LEVEL 97 MEQ/L (98-107); CREATININE FOR GFR 1.27 MG/DL (0.70-1.30); GLOMERULAR FILTRATION RATE > 60.0 (>49); GLUCOSE, FASTING 160 MG/DL (70-100); POTASSIUM SERUM 4.1 MEQ/L (3.5-5.1); SODIUM LEVEL 138 MEQ/L (136-145)
[2017-10-12 17:04] LABS: ESTIMATED AVERAGE GLUCOSE 174 MG/DL (60-110); HEMOGLOBIN A1c 7.7 %
== END ==
LOC: M WUC 11:48
DX: E11.9 Type 2 diabetes mellitus without complications (principal)
CPT/HCPCS: 83036

== ENCOUNTER → 2018-02-08 | Outpatient (CLI) | payer MEDICARE, OTHER ==
[2018-02-08 13:30] LABS: ANION GAP 10 MEQ/L (8-16); BLOOD UREA NITROGEN 17 MG/DL (7-18); CALCIUM LEVEL 9.6 MG/DL (8.8-10.2); CARBON DIOXIDE LEVEL 32 MEQ/L (21-32); CHLORIDE LEVEL 95 MEQ/L (98-107); CREATININE FOR GFR 1.26 MG/DL (0.70-1.30); GLOMERULAR FILTRATION RATE > 60.0 (>49); GLUCOSE, FASTING 159 MG/DL (70-100); POTASSIUM SERUM 4.4 MEQ/L (3.5-5.1); SODIUM LEVEL 137 MEQ/L (136-145)
[2018-02-08 15:24] LABS: ESTIMATED AVERAGE GLUCOSE 183 MG/DL (60-110)
== END ==
LOC: M WUC 11:31
DX: E11.9 Type 2 diabetes mellitus without complications (principal)
CPT/HCPCS: 83036

== ENCOUNTER → 2018-08-22 | Outpatient (REF) | payer MEDICARE, OTHER ==
[~2018-08-22] MED LIST changes: -/ADVA50050 IN; -/MOXI40TA PO; -/PANT40TA PO; +ADVA1AER2 IN; -ASPI1TAB PO; +ASPI1TAB22 PO; -ASPI81TA18 PO; +ASPI81TA26 PO; +ASPI81TA52 PO; +AVEL1TAB2 PO; +BENZ-18 PO; -BENZ100C5 PO; -EQ A1TAB12 PO; +IPRA0.00 INH; -IPRASOL4 INH; +PRED-351 PO; -PRED10TA PO; +PROT1TAB2 PO; +SPIR-10 PO; -SPIR25TA2 PO
[2018-08-22 19:38] LABS: MEAN CORPUSCULAR HGB CONC 34.1 g/dl (32.0-36.5); MEAN CORPUSCULAR VOLUME 105.4 fl (80.0-96.0); PLATELET COUNT, AUTOMATED 273 10^3/uL (150-450); RED BLOOD COUNT 3.89 10^6/uL (4.30-6.10); WHITE BLOOD COUNT 12.1 10^3/uL (4.0-10.0)
[2018-08-22 19:51] LABS: ALBUMIN 3.8 GM/DL (3.2-5.2); BILIRUBIN,TOTAL 0.8 MG/DL (0.2-1.0); CALCIUM LEVEL 9.5 MG/DL (8.8-10.2); CHOLESTEROL RISK RATIO 2.354 (<5); CREATININE FOR GFR 1.33 MG/DL (0.70-1.30); FREE T4 1.06 NG/DL (0.76-1.46); GLOMERULAR FILTRATION RATE 57.4 (>49); POTASSIUM SERUM 4.9 MEQ/L (3.5-5.1); THYROID STIMULATING HORMONE 1.79 uIU/ML (0.358-3.740); TOTAL PROTEIN 7.6 GM/DL (6.4-8.2)
[2018-08-22 20:11] LABS: CREATININE, URINE 99.6 MG/DL; MALB URINE SIEMENS 6.1 MG/L; MAU/CREAT RATIO 6.1 MCG/MG (0.0-30.0)
[2018-08-22 20:19] LABS: HEMOGLOBIN A1c 7.8 %
== END ==
LOC: M SFHCADAM 13:21
PROVIDERS: ATTEND Family Medicine
DX: I48.91 Unspecified atrial fibrillation (principal); I50.32 Chronic diastolic (congestive) heart failure; E11.9 Type 2 diabetes mellitus without complications; E03.9 Hypothyroidism, unspecified; I25.10 Atherosclerotic heart disease of native coronary artery without angina pectoris; E78.2 Mixed hyperlipidemia

== ENCOUNTER → 2019-01-24 | Outpatient (REF) | payer MEDICARE, OTHER ==
[2019-01-24 16:54] LABS: CALCIUM LEVEL 9.5 MG/DL (8.8-10.2); CREATININE FOR GFR 1.39 MG/DL (0.70-1.30); GLOMERULAR FILTRATION RATE 54.6 (>49); POTASSIUM SERUM 4.5 MEQ/L (3.5-5.1)
[2019-01-24 17:42] LABS: HEMOGLOBIN A1c 8.7 %
== END ==
LOC: M SFHCADAM 14:53
PROVIDERS: ATTEND Family Medicine
DX: E11.9 Type 2 diabetes mellitus without complications (principal)

== ENCOUNTER → 2019-04-22 | Outpatient (REF) | payer MEDICARE, OTHER ==
[2019-04-22 17:20] LABS: HEMATOCRIT 47.8 % (42.0-52.0); MEAN CORPUSCULAR HEMOGLOBIN 32.4 pg (27.0-33.0); MEAN CORPUSCULAR HGB CONC 31.4 g/dl (32.0-36.5); MEAN CORPUSCULAR VOLUME 103.2 fl (80.0-96.0); PLATELET COUNT, AUTOMATED 257 10^3/uL (150-450); RED BLOOD COUNT 4.63 10^6/uL (4.30-6.10); WHITE BLOOD COUNT 14.3 10^3/uL (4.0-10.0)
[2019-04-22 17:27] LABS: HEMOGLOBIN A1c 8.1 %
[2019-04-22 17:30] LABS: ALBUMIN 3.8 GM/DL (3.2-5.2); BILIRUBIN,TOTAL 0.8 MG/DL (0.2-1.0); CALCIUM LEVEL 9.6 MG/DL (8.8-10.2); CHOLESTEROL RISK RATIO 3.2 (<5); CREATININE FOR GFR 1.5 MG/DL (0.70-1.30); FREE T4 1.1 NG/DL (0.76-1.46); GLOMERULAR FILTRATION RATE 49.8 (>49); POTASSIUM SERUM 5.2 MEQ/L (3.5-5.1); THYROID STIMULATING HORMONE 2.82 uIU/ML (0.358-3.740); TOTAL PROTEIN 7.7 GM/DL (6.4-8.2)
== END ==
LOC: M SFHCADAM 12:42
PROVIDERS: ATTEND Family Medicine
DX: N18.3 Chronic kidney disease, stage 3 (moderate) (principal); E11.9 Type 2 diabetes mellitus without complications; E03.9 Hypothyroidism, unspecified; E78.2 Mixed hyperlipidemia

== ENCOUNTER → 2019-12-29 | Outpatient (REF) | payer MEDICARE, OTHER ==
[~2019-12-29] MED LIST changes: -AMIO200T PO; +AMIO200T3 PO
[2019-12-29 17:58] LABS: HEMATOCRIT 45.7 % (42.0-52.0); HEMOGLOBIN 14.7 g/dl (13.5-17.5); MEAN CORPUSCULAR HEMOGLOBIN 33.8 pg (27.0-33.0); MEAN CORPUSCULAR HGB CONC 32.2 g/dl (32.0-36.5); MEAN CORPUSCULAR VOLUME 105.1 fl (80.0-96.0); PLATELET COUNT, AUTOMATED 215 10^3/uL (150-450); RED BLOOD COUNT 4.35 10^6/uL (4.30-6.10); WHITE BLOOD COUNT 10.2 10^3/uL (4.0-10.0)
[2019-12-29 18:12] LABS: ALBUMIN 3.5 GM/DL (3.2-5.2); ALT/SGPT 27 U/L (12-78); BILIRUBIN,TOTAL 0.9 MG/DL (0.2-1.0); BLOOD UREA NITROGEN 18 MG/DL (7-18); CARBON DIOXIDE LEVEL 31 MEQ/L (21-32); CHLORIDE LEVEL 101 MEQ/L (98-107); CHOLESTEROL LEVEL 145 MG/DL (<200); CHOLESTEROL RISK RATIO 2.377 (<5); CREATININE FOR GFR 1.25 MG/DL (0.70-1.30); FREE T4 0.96 NG/DL (0.76-1.46); GLOMERULAR FILTRATION RATE > 60.0 (>49); GLUCOSE, FASTING 171 MG/DL (70-100); HDL CHOLESTEROL 61 MG/DL (>40); LDL CHOLESTEROL 49 MG/DL (<100); NON-HDL-C 84 MG/DL; POTASSIUM SERUM 5.2 MEQ/L (3.5-5.1); SODIUM LEVEL 136 MEQ/L (136-145); TOTAL PROTEIN 7.4 GM/DL (6.4-8.2); TRIGLYCERIDES LEVEL 174 MG/DL (<150)
[2019-12-29 18:38] LABS: HEMOGLOBIN A1c 8.7 %
== END ==
LOC: M SFHCADAM 16:55
PROVIDERS: ATTEND Family Medicine
DX: I13.10 Hypertensive heart and chronic kidney disease without heart failure, with stage 1 through stage 4 chronic kidney disease, or unspecified chronic kidney disease (principal); E78.5 Hyperlipidemia, unspecified; E03.9 Hypothyroidism, unspecified; N18.3 Chronic kidney disease, stage 3 (moderate); Z79.899 Other long term (current) drug therapy

== ENCOUNTER → 2020-09-29 | Outpatient (REF) | payer MEDICARE, OTHER ==
[~2020-09-29] MED LIST changes: -LISI-542 PO; +LISI-898 PO
[2020-09-29 17:22] LABS: HEMATOCRIT 44.8 % (42.0-52.0); HEMOGLOBIN 14.2 g/dl (13.5-17.5); MEAN CORPUSCULAR HEMOGLOBIN 33.8 pg (27.0-33.0); MEAN CORPUSCULAR HGB CONC 31.7 g/dl (32.0-36.5); MEAN CORPUSCULAR VOLUME 106.7 fl (80.0-96.0); PLATELET COUNT, AUTOMATED 209 10^3/uL (150-450); WHITE BLOOD COUNT 8.6 10^3/uL (4.0-10.0)
[2020-09-29 18:15] LABS: ALBUMIN 3.5 GM/DL (3.2-5.2); ALT/SGPT 25 U/L (12-78); BILIRUBIN,TOTAL 0.4 MG/DL (0.2-1.0); BLOOD UREA NITROGEN 17 MG/DL (7-18); CALCIUM LEVEL 8.7 MG/DL (8.8-10.2); CARBON DIOXIDE LEVEL 29 MEQ/L (21-32); CHLORIDE LEVEL 103 MEQ/L (98-107); CHOLESTEROL LEVEL 153 MG/DL (<200); CHOLESTEROL RISK RATIO 2.732 (<5); CREATININE FOR GFR 1.04 MG/DL (0.70-1.30); FREE T4 0.89 NG/DL (0.76-1.46); GLOMERULAR FILTRATION RATE > 60.0 (>49); GLUCOSE, FASTING 168 MG/DL (70-100); HDL CHOLESTEROL 56 MG/DL (>40); LDL CHOLESTEROL 62 MG/DL (<100); NON-HDL-C 97 MG/DL; POTASSIUM SERUM 5.1 MEQ/L (3.5-5.1); SODIUM LEVEL 137 MEQ/L (136-145); TOTAL PROTEIN 7.2 GM/DL (6.4-8.2); TRIGLYCERIDES LEVEL 176 MG/DL (<150)
[2020-09-29 18:18] LABS: HEMOGLOBIN A1c 8.4 %
== END ==
LOC: M SFHCADAM 14:43
PROVIDERS: ATTEND Family Medicine
DX: I48.91 Unspecified atrial fibrillation (principal); N18.30 Chronic kidney disease, stage 3 unspecified; I11.0 Hypertensive heart disease with heart failure; E03.9 Hypothyroidism, unspecified; E11.22 Type 2 diabetes mellitus with diabetic chronic kidney disease; E78.2 Mixed hyperlipidemia

== ENCOUNTER → 2020-10-01 | Outpatient (REF) | payer MEDICARE, OTHER ==
[2020-10-01 20:00] LABS: TOTAL PROTEIN 7.4 GM/DL (6.4-8.2)
[2020-10-01 20:46] LABS: VITAMIN B12 LEVEL 301 PG/ML (247-911)
[2020-10-04 11:21] LABS: ALBUMIN 3.89 GM/DL (3.29-5.55); ALBUMIN % 52.5 % (55.8-66.1); ALPHA-2-GLOBULINS 0.93 GM/DL (0.42-0.99); ALPHA-2-GLOBULINS % 12.5 % (7.1-11.8); BETA-1-GLOBULINS 0.53 GM/DL (0.28-0.60); BETA-1-GLOBULINS % 7.1 % (4.7-7.2); BETA-2-GLOBULINS 0.61 GM/DL (0.19-0.55); BETA-2-GLOBULINS % 8.3 % (3.2-6.5); GAMMA GLOBULIN % 15.6 % (11.1-18.8); GAMMA GLOBULINS 1.15 GM/DL (0.65-1.58)
[2020-10-04 13:27] LABS: FOLATE 11.5 NG/ML (>5.4)
[2020-10-05 15:10] LABS: FREE KAPPA LIGHT CHAINS SERUM 25.3 mg/L (3.3-19.4); FREE LAMBDA LIGHT CHAINS SERUM 25.1 mg/L (5.7-26.3); KAPPA/LAMBDA RATIO SERUM 1.01 (0.26-1.65)
== END ==
LOC: M SFHCADAM 15:03
PROVIDERS: ATTEND Family Medicine
DX: D75.89 Other specified diseases of blood and blood-forming organs (principal)
CPT/HCPCS: 82607; 82746; 83883; 84165; G0463

== ENCOUNTER → 2021-01-18 | Outpatient (REF) | payer MEDICARE, OTHER ==
[2021-01-18 17:20] LABS: CALCIUM LEVEL 8.7 MG/DL (8.8-10.2); CREATININE FOR GFR 1.41 MG/DL (0.70-1.30); GLOMERULAR FILTRATION RATE 53.4 (>49)
[2021-01-18 17:26] LABS: HEMOGLOBIN A1c 8.8 %
== END ==
LOC: M SFHCADAM 14:07
PROVIDERS: ATTEND Family Medicine
DX: E11.9 Type 2 diabetes mellitus without complications (principal)

== ENCOUNTER → 2021-03-04 | Outpatient (CLI) | payer MEDICARE, OTHER | LOC: M LABSMTC 11:19 | PROVIDERS: ATTEND Pediatrics | DX: Z20.822 Contact with and (suspected) exposure to COVID-19 (principal) | CPT/HCPCS: C9803; U0003 ==

== ENCOUNTER 2021-03-07 11:31 | Outpatient (CLI) | payer MEDICARE, OTHER ==
[~2021-03-07] VITALS: Ht 188 cm; Wt 155.9 kg
[~2021-03-07 11:31] MED LIST changes: +ACETAMINOPHEN TAB 650MG DOSE (2X325MG) PO PRN; +ALBUTEROL 90 MCG/ACT 8GM HFA INHALER INH PRN; +ALBUTEROL SULFATE 2.5 MG/0.5 ML INH NEB SOLN INH PRN; +CASIRIVIMAB (REGN10933) 600 MG, IMDEVIMAB (REGN10987) 600 MG in NS 250 ML IV ONE; +CASIRIVIMAB/IMDEVIMAB 1,200 MG in NS 250 ML IV ONE; +EPINEPHrine INJ 1 MG/ML 1ML AMP IM PRN; +NS 1,000 ML IV SCH; +diphenhydrAMINE 50MG/ML VIAL (J1200) IV PRN; +methylPREDNISolone 125MG 2ML VIAL IV PRN
[2021-03-07 11:56] VITALS: BP 98/56
[2021-03-07 12:26] VITALS: BP 102/54
[2021-03-07 12:56] VITALS: BP 100/54
[2021-03-07 13:56] VITALS: BP 91/56
== END 2021-03-07 13:56 | disposition home or self-care (01) ==
LOC: M OPCLI4PR 11:31
PROVIDERS: ATTEND Family Medicine
DX: U07.1 COVID-19 (principal)

== ENCOUNTER → 2021-04-20 | Outpatient (REF) | payer MEDICARE, OTHER ==
[~2021-04-20] MED LIST changes: -ACETAMINOPHEN TAB 650MG DOSE (2X325MG) PO PRN; -ALBUTEROL 90 MCG/ACT 8GM HFA INHALER INH PRN; -ALBUTEROL SULFATE 2.5 MG/0.5 ML INH NEB SOLN INH PRN; -AMIO200T3 PO; +AMIO200T49 PO; -CASIRIVIMAB (REGN10933) 600 MG, IMDEVIMAB (REGN10987) 600 MG in NS 250 ML IV ONE; -CASIRIVIMAB/IMDEVIMAB 1,200 MG in NS 250 ML IV ONE; -EPINEPHrine INJ 1 MG/ML 1ML AMP IM PRN; -LISI-898 PO; +LISI5TAB11 PO; -NS 1,000 ML IV SCH; -diphenhydrAMINE 50MG/ML VIAL (J1200) IV PRN; -methylPREDNISolone 125MG 2ML VIAL IV PRN
[2021-04-20 18:00] LABS: BLOOD UREA NITROGEN 18 MG/DL (7-18); CALCIUM LEVEL 9.6 MG/DL (8.8-10.2); CARBON DIOXIDE LEVEL 27 MEQ/L (21-32); CHLORIDE LEVEL 100 MEQ/L (98-107); CREATININE FOR GFR 1.21 MG/DL (0.70-1.30); GLOMERULAR FILTRATION RATE > 60.0 (>49); GLUCOSE, FASTING 203 MG/DL (70-100); POTASSIUM SERUM 4.6 MEQ/L (3.5-5.1); SODIUM LEVEL 136 MEQ/L (136-145)
[2021-04-20 18:11] LABS: TOTAL 25(OH) VITAMIN D 15.7 NG/ML (30.0-100.0)
[2021-04-20 18:39] LABS: HEMOGLOBIN A1c 8.2 %
== END ==
LOC: M SFHCADAM 11:53
PROVIDERS: ATTEND Family Medicine
DX: E11.9 Type 2 diabetes mellitus without complications (principal); N18.30 Chronic kidney disease, stage 3 unspecified

== ENCOUNTER → 2021-07-19 | Outpatient (REF) | payer MEDICARE, OTHER ==
[~2021-07-19] MED LIST changes: -DOXY150C PO; +DOXY150C3 PO
[2021-07-19 17:37] LABS: HEMATOCRIT 45.8 % (42.0-52.0); HEMOGLOBIN 14.7 g/dl (13.5-17.5); MEAN CORPUSCULAR HGB CONC 32.1 g/dl (32.0-36.5); PLATELET COUNT, AUTOMATED 235 10^3/uL (150-450); RED BLOOD COUNT 4.32 10^6/uL (4.30-6.10); WHITE BLOOD COUNT 8.5 10^3/uL (4.0-10.0)
[2021-07-19 17:54] LABS: HEMOGLOBIN A1c 8.8 %
[2021-07-19 18:13] LABS: ALBUMIN 3.7 GM/DL (3.2-5.2); ALT/SGPT 46 U/L (12-78); BILIRUBIN,TOTAL 0.6 MG/DL (0.2-1.0); BLOOD UREA NITROGEN 15 MG/DL (7-18); CALCIUM LEVEL 9.6 MG/DL (8.8-10.2); CARBON DIOXIDE LEVEL 33 MEQ/L (21-32); CHLORIDE LEVEL 100 MEQ/L (98-107); CHOLESTEROL LEVEL 141 MG/DL (<200); CHOLESTEROL RISK RATIO 1.958 (<5); CREATININE FOR GFR 1.25 MG/DL (0.70-1.30); FREE T4 1.02 NG/DL (0.76-1.46); GLOMERULAR FILTRATION RATE > 60.0 (>49); GLUCOSE, FASTING 177 MG/DL (70-100); HDL CHOLESTEROL 72 MG/DL (>40); LDL CHOLESTEROL 41 MG/DL (<100); NON-HDL-C 69 MG/DL; SODIUM LEVEL 137 MEQ/L (136-145); TOTAL PROTEIN 7.5 GM/DL (6.4-8.2); TRIGLYCERIDES LEVEL 141 MG/DL (<150)
== END ==
LOC: M SFHCADAM 15:37
PROVIDERS: ATTEND Family Medicine
DX: E11.22 Type 2 diabetes mellitus with diabetic chronic kidney disease (principal); E78.2 Mixed hyperlipidemia; E03.9 Hypothyroidism, unspecified; I27.81 Cor pulmonale (chronic); Z12.5 Encounter for screening for malignant neoplasm of prostate
CPT/HCPCS: 80053; 80061; 83036; 84439; 84443; 85027; G0103

== ENCOUNTER → 2021-11-25 | Outpatient (REF) | payer MEDICARE, OTHER ==
[~2021-11-25] MED LIST changes: +ALBU2.5V10 INH; -ALBU83IN INH
[2021-11-25 18:11] LABS: HEMOGLOBIN A1c 7.1 %
[2021-11-25 18:29] LABS: BLOOD UREA NITROGEN 12 MG/DL (7-18); CALCIUM LEVEL 9.3 MG/DL (8.8-10.2); CARBON DIOXIDE LEVEL 28 MEQ/L (21-32); CHLORIDE LEVEL 103 MEQ/L (98-107); CREATININE FOR GFR 1.03 MG/DL (0.70-1.30); GLOMERULAR FILTRATION RATE > 60.0 (>49); GLUCOSE, FASTING 138 MG/DL (70-100); POTASSIUM SERUM 4.2 MEQ/L (3.5-5.1); SODIUM LEVEL 137 MEQ/L (136-145)
== END ==
LOC: M SFHCADAM 13:37
PROVIDERS: ATTEND Family Medicine
DX: E11.9 Type 2 diabetes mellitus without complications (principal)

== ENCOUNTER → 2022-08-09 | Outpatient (REF) | payer MEDICARE, OTHER ==
[~2022-08-09] MED LIST changes: +CLOP75TA99 PO; -PLAV1TAB2 PO
[2022-08-09 16:34] LABS: HEMATOCRIT 47.7 % (42.0-52.0); HEMOGLOBIN 15.3 g/dl (13.5-17.5); MEAN CORPUSCULAR HEMOGLOBIN 33.6 pg (27.0-33.0); MEAN CORPUSCULAR HGB CONC 32.1 g/dl (32.0-36.5); MEAN CORPUSCULAR VOLUME 104.6 fl (80.0-96.0); PLATELET COUNT, AUTOMATED 219 10^3/uL (150-450); RED BLOOD COUNT 4.56 10^6/uL (4.30-6.10); WHITE BLOOD COUNT 10.6 10^3/uL (4.0-10.0)
[2022-08-09 16:39] LABS: ALBUMIN 3.6 G/DL (3.2-5.2); ALKALINE PHOSPHATASE 66 U/L (46-116); ALT/SGPT 26 U/L (7.0-40); AST/SGOT 28 U/L (<34); BILIRUBIN,TOTAL 1.3 MG/DL (0.3-1.2); BLOOD UREA NITROGEN 18 MG/DL (9-23); CALCIUM LEVEL 9.7 MG/DL (8.3-10.6); CARBON DIOXIDE LEVEL 31 MMOL/L (20-31); CHLORIDE LEVEL 96 MMOL/L (98-107); CREATININE FOR GFR 1.14 MG/DL (0.70-1.30); GLOMERULAR FILTRATION RATE > 60.0 (>49); GLUCOSE, FASTING 152 MG/DL (74-106); POTASSIUM SERUM 4.7 MMOL/L (3.5-5.1); SODIUM LEVEL 138 MMOL/L (136-145); TOTAL PROTEIN 7.4 G/DL (5.7-8.2)
[2022-08-09 17:09] LABS: FREE T4 1.17 NG/DL (0.89-1.76); THYROID STIMULATING HORMONE 2.884 uIU/ML (0.55-4.78)
[2022-08-09 17:40] LABS: HEMOGLOBIN A1c 7.8 % (4.0-6.0)
== END ==
LOC: M SFHCADAM 13:31
PROVIDERS: ATTEND Family Medicine
DX: E03.9 Hypothyroidism, unspecified (principal); E11.9 Type 2 diabetes mellitus without complications; I27.81 Cor pulmonale (chronic)

== ENCOUNTER → 2022-11-20 | Outpatient (REF) | payer MEDICARE, OTHER ==
[2022-11-20 15:54] LABS: ALBUMIN 3.7 G/DL (3.2-5.2); ALKALINE PHOSPHATASE 72 U/L (46-116); ALT/SGPT 17 U/L (7.0-40); AST/SGOT 12 U/L (<34); BILIRUBIN,TOTAL 1.2 MG/DL (0.3-1.2); BLOOD UREA NITROGEN 24 MG/DL (9-23); CALCIUM LEVEL 9.5 MG/DL (8.3-10.6); CARBON DIOXIDE LEVEL 29 MMOL/L (20-31); CHLORIDE LEVEL 96 MMOL/L (98-107); CHOLESTEROL LEVEL 143 MG/DL (<200); CHOLESTEROL RISK RATIO 2.11 (<5); CREATININE FOR GFR 1.16 MG/DL (0.70-1.30); FREE T4 1.27 NG/DL (0.89-1.76); GLOMERULAR FILTRATION RATE > 60.0 (>49); GLUCOSE, FASTING 159 MG/DL (74-106); HDL CHOLESTEROL 67.5 MG/DL (>40); LDL CHOLESTEROL 51.5 MG/DL (<100); NON-HDL-C 75.5 MG/DL; POTASSIUM SERUM 4.4 MMOL/L (3.5-5.1); SODIUM LEVEL 133 MMOL/L (136-145); THYROID STIMULATING HORMONE 2.692 uIU/ML (0.55-4.78); TOTAL PROTEIN 7.6 G/DL (5.7-8.2); TRIGLYCERIDES LEVEL 120 MG/DL (<150)
== END ==
LOC: M SFHCADAM 14:06
PROVIDERS: ATTEND Family Medicine
DX: E11.22 Type 2 diabetes mellitus with diabetic chronic kidney disease (principal); F17.200 Nicotine dependence, unspecified, uncomplicated; Z12.2 Encounter for screening for malignant neoplasm of respiratory organs; E03.9 Hypothyroidism, unspecified; I25.10 Atherosclerotic heart disease of native coronary artery without angina pectoris

== ENCOUNTER → 2022-12-15 | Outpatient (CLI) | payer MEDICARE, OTHER | LOC: M RAD 12:35 | PROVIDERS: ATTEND Family Medicine | DX: R91.8 Other nonspecific abnormal finding of lung field (principal); F17.211 Nicotine dependence, cigarettes, in remission; Z12.2 Encounter for screening for malignant neoplasm of respiratory organs ==

== ENCOUNTER → 2023-05-10 | Outpatient (REF) | payer MEDICARE, OTHER ==
[2023-05-10 18:26] LABS: BLOOD UREA NITROGEN 21 MG/DL (9-23); CALCIUM LEVEL 8.9 MG/DL (8.3-10.6); CARBON DIOXIDE LEVEL 32 MMOL/L (20-31); CHLORIDE LEVEL 99 MMOL/L (98-107); CREATININE FOR GFR 1.11 MG/DL (0.70-1.30); GLOMERULAR FILTRATION RATE > 60.0 (>42); GLUCOSE, FASTING 203 MG/DL (74-106); POTASSIUM SERUM 5.3 MMOL/L (3.5-5.1); SODIUM LEVEL 138 MMOL/L (136-145)
[2023-05-10 19:56] LABS: HEMOGLOBIN A1c 8.8 % (4.0-6.0)
== END ==
LOC: M SFHCADAM 14:45
PROVIDERS: ATTEND Family Medicine
DX: E11.22 Type 2 diabetes mellitus with diabetic chronic kidney disease (principal)

== ENCOUNTER → 2023-07-18 | Outpatient (CLI) | payer MEDICARE, OTHER ==
[~2023-07-18] MED LIST changes: -DOXY150C3 PO; +DOXY150C5 PO
== END ==
LOC: M PLAIMG 14:07
PROVIDERS: ATTEND Internal Medicine Pulmonary Disease
DX: R91.8 Other nonspecific abnormal finding of lung field (principal)

== ENCOUNTER → 2023-12-04 | Outpatient (REF) | payer MEDICARE, OTHER ==
[2023-12-04 18:05] LABS: HEMATOCRIT 39.5 % (42.0-52.0); HEMOGLOBIN 12.9 g/dl (13.5-17.5); MEAN CORPUSCULAR HEMOGLOBIN 35.2 pg (27.0-33.0); MEAN CORPUSCULAR HGB CONC 32.7 g/dl (32.0-36.5); MEAN CORPUSCULAR VOLUME 107.9 fl (80.0-96.0); PLATELET COUNT, AUTOMATED 194 10^3/uL (150-450); RED BLOOD COUNT 3.66 10^6/uL (4.30-6.10); WHITE BLOOD COUNT 8.9 10^3/uL (4.0-10.0)
[2023-12-04 18:18] LABS: ALBUMIN 3.2 G/DL (3.2-5.2); ALKALINE PHOSPHATASE 71 U/L (46-116); ALT/SGPT 18 U/L (7.0-40); AST/SGOT 21 U/L (<34); BLOOD UREA NITROGEN 20 MG/DL (9-23); CARBON DIOXIDE LEVEL 31 MMOL/L (20-31); CHLORIDE LEVEL 100 MMOL/L (98-107); CHOLESTEROL LEVEL 124 MG/DL (<200); CHOLESTEROL RISK RATIO 1.82 (<5); CREATININE FOR GFR 1.04 MG/DL (0.70-1.30); FREE T4 1.11 NG/DL (0.89-1.76); GLOMERULAR FILTRATION RATE > 60.0 (>42); GLUCOSE, FASTING 147 MG/DL (74-106); HDL CHOLESTEROL 68.1 MG/DL (>40); LDL CHOLESTEROL 37.9 MG/DL (<100); NON-HDL-C 55.9 MG/DL; POTASSIUM SERUM 4.3 MMOL/L (3.5-5.1); SODIUM LEVEL 136 MMOL/L (136-145); THYROID STIMULATING HORMONE 2.943 uIU/ML (0.55-4.78); TOTAL PROTEIN 6.9 G/DL (5.7-8.2); TRIGLYCERIDES LEVEL 90 MG/DL (<150)
[2023-12-04 18:21] LABS: HEMOGLOBIN A1c 7.6 % (4.0-6.0)
== END ==
LOC: M SFHCADAM 14:20
PROVIDERS: ATTEND Family Medicine
DX: I11.0 Hypertensive heart disease with heart failure (principal); E03.9 Hypothyroidism, unspecified; I50.32 Chronic diastolic (congestive) heart failure; E11.22 Type 2 diabetes mellitus with diabetic chronic kidney disease; I25.10 Atherosclerotic heart disease of native coronary artery without angina pectoris

== ENCOUNTER → 2023-12-05 | Outpatient (REF) | payer MEDICARE, OTHER ==
[2023-12-05 18:47] LABS: CREATININE, URINE 78.8 MG/DL
== END ==
LOC: M SFHCADAM 16:54
PROVIDERS: ATTEND Family Medicine
DX: E11.22 Type 2 diabetes mellitus with diabetic chronic kidney disease (principal)

== ENCOUNTER 2024-06-03 17:25 | Inpatient (IN) | payer MEDICARE, OTHER ==
[~2024-06-03] VITALS: Ht 188 cm; Wt 137.3 kg
[~2024-06-03 17:25] MED LIST changes: -ADV250INH INH; +ADVA1AER9 INH; +ATOR-398 PO; -LIPI80TA PO
[2024-06-03 17:54] LABS: VENOUS BASE EXCESS 1.9 (-2.0-2.0); VENOUS HCO3 27.9 MMOL/L (23.0-27.0); VENOUS O2 SATURATION 84.8 % (60.0-80.0); VENOUS PARTIAL PRESSURE CO2 48.5 mmHg (38.0-50.0); VENOUS PARTIAL PRESSURE O2 52.2 mmHg (30.0-50.0); VENOUS PH 7.378 UNITS (7.330-7.430); VENOUS STANDARD HCO3 25.8 MMOL/L; VENOUS TOTAL CO2 29.4 MMOL/L (24.0-28.0)
[2024-06-03 18:03] LABS: BASO % 0.3 % (0.0-1.0); EOS % 0.1 % (0.0-3.0); HEMATOCRIT 43.8 % (42.0-52.0); HEMOGLOBIN 14.6 g/dl (13.5-17.5); LYMPH # 1.5 10^3/uL (1.5-5.0); LYMPH % 13.9 % (24.0-44.0); MEAN CORPUSCULAR HEMOGLOBIN 34.5 pg (27.0-33.0); MEAN CORPUSCULAR HGB CONC 33.3 g/dl (32.0-36.5); MEAN CORPUSCULAR VOLUME 103.5 fl (80.0-96.0); MONO # 0.9 10^3/uL (0.0-0.8); MONO % 7.9 % (2.0-8.0); NEUTROPHILS # 8.4 10^3/uL (1.5-8.5); NEUTROPHILS % 76.6 % (36.0-66.0); PLATELET COUNT, AUTOMATED 228 10^3/uL (150-450); RED BLOOD COUNT 4.23 10^6/uL (4.30-6.10)
[2024-06-03 18:13] LABS: INR 1.31; PARTIAL THROMBOPLASTIN TIME 27.8 SECONDS (24.8-34.2); PROTHROMBIN TIME 16.5 SECONDS (12.5-14.5)
[2024-06-03 18:21] LABS: CPK CREATINE PHOSPHOKINASE 34 U/L (46-171)
[2024-06-03 18:22] LABS: ALKALINE PHOSPHATASE 56 U/L (40-129); ALT/SGPT 18 U/L (7.0-40); AST/SGOT 12 U/L (<34); BILIRUBIN,DIRECT 0.3 MG/DL (<0.4); BILIRUBIN,TOTAL 0.9 MG/DL (0.3-1.2); BLOOD UREA NITROGEN 17 MG/DL (9-23); CARBON DIOXIDE LEVEL 28 MMOL/L (20-31); CHLORIDE LEVEL 102 MMOL/L (98-107); CK-MB VALUE MASS 1.4 NG/ML (<3.6); CREATININE FOR GFR 0.89 MG/DL (0.70-1.30); GLOMERULAR FILTRATION RATE > 60.0 (>42); GLUCOSE, FASTING 164 MG/DL (74-106); MB/CK RELATIVE INDEX 4.11 (< OR =4); POTASSIUM SERUM 4.8 MMOL/L (3.5-5.1); SODIUM LEVEL 139 MMOL/L (136-145); TOTAL PROTEIN 7.2 G/DL (5.7-8.2)
[2024-06-03 19:26] LABS: CK-MB VALUE MASS < 1.0 NG/ML (<3.6)
[2024-06-03 19:32] LABS: CPK CREATINE PHOSPHOKINASE 52 U/L (46-171); MB/CK RELATIVE INDEX 1.92 (< OR =4)
[2024-06-03] MEDS: IPRATROPIUM 0.5MG/ALBUTEROL 2.5MG INH SOL UD 3ML (DUONEB) NEB ONE ×2 (20:21)
[2024-06-03] MEDS: OSELTAMIVIR PHOSPHATE 75 MG CAP PO ONE (20:43)
[2024-06-03] MEDS ORDERED: PRED10TA2 PO (21:01)
[2024-06-03] MEDS ORDERED: DILT1TAB12 PO (21:01)
[2024-06-03] MEDS ORDERED: FLUT1BLS6 INH (21:01)
[2024-06-03] MEDS ORDERED: CEFD1CAP9 PO (21:01)
[2024-06-03] MEDS ORDERED: ALBU8.5H INH (21:01)
[2024-06-03] MEDS ORDERED: DULO1CAP6 PO (21:01)
[2024-06-03] MEDS ORDERED: FARX1TAB3 PO (21:01)
[2024-06-03] MEDS ORDERED: FURO80TA2 PO (21:01)
[2024-06-03] MEDS ORDERED: JANU100T PO (21:01)
[2024-06-03] MEDS ORDERED: SEMA1PEN2 INJ (21:02)
[2024-06-03] MEDS ORDERED: HOME MED LIST COMPLETE! XX SCH (21:05)
[2024-06-03] MEDS: SYMBICORT 160/4.5MCG INHALER 6GM INH SCH (21:09)
[2024-06-03] MEDS ORDERED: MAALOX 30 ML SUSP *UDC PO PRN (22:10)
[2024-06-03] MEDS ORDERED: ACETAMINOPHEN 325 MG TAB PO PRN (22:10)
[2024-06-03] MEDS ORDERED: methylPREDNISolone 125MG 2ML VIAL IV SCH (23:00)
[2024-06-03] MEDS: dilTIAZem 60 MG TAB PO SCH (23:22)
[2024-06-03] MEDS: guaiFENesin ER TABLET 600 MG TAB PO SCH (23:23)
[2024-06-03] MEDS: METOPROLOL TARTRATE 100MG TAB PO SCH (23:23)
[2024-06-03] MEDS: AZITHROMYCIN 250MG TABLET PO ONE (23:23)
[2024-06-03] MEDS: cefTRIAXone SOD 1 GM in DEXTROSE 5% (D5W) ADV/MINI-BAG 50 ML IV SCH (23:23)
[2024-06-03] MEDS: APIXABAN 5 MG TAB (ELIQUIS) PO SCH (23:25)
[2024-06-04] MEDS: IPRATROPIUM 0.5MG/ALBUTEROL 2.5MG INH SOL UD 3ML (DUONEB) NEB SCH (00:39)
[2024-06-04] MEDS: ALBUTEROL SULFATE 2.5MG/0.5ML INH NEB SOLN NEB SCH (00:39)
[2024-06-04] MEDS: LEVOTHYROXINE 75MCG TABLET (0.075MG) PO SCH (06:46)
[2024-06-04] MEDS: methylPREDNISolone 125MG 2ML VIAL IV SCH ×2 (06:46→13:59)
[2024-06-04] MEDS ORDERED: DEXTROSE 50% 50ML SYRINGE IV PRN (07:45)
[2024-06-04] MEDS ORDERED: GLUCOSE 4 GM CHEW PO PRN (07:45)
[2024-06-04] MEDS ORDERED: GLUCAGON INJ 1MG VIAL SC PRN (07:45)
[2024-06-04 07:53] LABS: BASO % 0.4 % (0.0-1.0); EOS % 0.1 % (0.0-3.0); HEMATOCRIT 48.8 % (42.0-52.0); HEMOGLOBIN 15.4 g/dl (13.5-17.5); LYMPH # 0.8 10^3/uL (1.5-5.0); LYMPH % 9.7 % (24.0-44.0); MEAN CORPUSCULAR HEMOGLOBIN 34.5 pg (27.0-33.0); MEAN CORPUSCULAR HGB CONC 31.6 g/dl (32.0-36.5); MEAN CORPUSCULAR VOLUME 109.2 fl (80.0-96.0); MONO # 0.3 10^3/uL (0.0-0.8); MONO % 3.4 % (2.0-8.0); NEUTROPHILS # 7.3 10^3/uL (1.5-8.5); NEUTROPHILS % 84.9 % (36.0-66.0); PLATELET COUNT, AUTOMATED 197 10^3/uL (150-450); RED BLOOD COUNT 4.47 10^6/uL (4.30-6.10); WHITE BLOOD COUNT 8.6 10^3/uL (4.0-10.0)
[2024-06-04] MEDS: ASPIRIN 81MG ENTERIC TABLET PO SCH (07:57)
[2024-06-04] MEDS: OSELTAMIVIR PHOSPHATE 75 MG CAP PO SCH (07:57)
[2024-06-04] MEDS: DULoxetine 30MG CAPSULE (CYMBALTA) PO SCH (07:57)
[2024-06-04] MEDS: DOCUSATE SODIUM 100MG CAPSULE PO SCH (07:58)
[2024-06-04] MEDS: PANTOPRAZOLE 40MG TAB (PROTONIX) PO SCH (07:58)
[2024-06-04] MEDS: DAPAGLIFLOZIN PROPANEDIOL 10MG TABLET (FARXIGA) PO SCH (07:58)
[2024-06-04] MEDS: ATORVASTATIN 20 MG TAB PO SCH (07:58)
[2024-06-04] MEDS: SPIRONOLACTONE 25 MG TAB PO SCH (07:59)
[2024-06-04] MEDS ORDERED: metFORMIN (GLUCOPHAGE) 500MG TAB PO SCH (08:00)
[2024-06-04 08:22] LABS: BLOOD UREA NITROGEN 17 MG/DL (9-23); CALCIUM LEVEL 8.7 MG/DL (8.3-10.6); CARBON DIOXIDE LEVEL 26 MMOL/L (20-31); CHLORIDE LEVEL 102 MMOL/L (98-107); CREATININE FOR GFR 0.79 MG/DL (0.70-1.30); GLOMERULAR FILTRATION RATE > 60.0 (>42); GLUCOSE, FASTING 177 MG/DL (74-106); POTASSIUM SERUM 5.9 MMOL/L (3.5-5.1); SODIUM LEVEL 136 MMOL/L (136-145)
[2024-06-04] MEDS: AZITHROMYCIN INJ 500 MG, VIAL MATE ADAPTER 1 EACH in NS 250 ML IV SCH (08:28)
[2024-06-04] MEDS: lisinopriL 5 MG TAB PO SCH (08:29)
[2024-06-04] MEDS: TIOTROPIUM INHALER/CAPSULE (SPIRIVA) INH SCH (08:41)
[2024-06-04] MEDS: INSULIN LISPRO (NovoLOG) PER UNIT SC SCH ×2 (08:53→21:15)
[2024-06-04] MEDS ORDERED: SITagliptin 50 MG TAB (JANUVIA) PO SCH (09:00)
[2024-06-04] MEDS: FUROSEMIDE 80 MG TAB PO SCH (11:25)
[2024-06-04] MEDS: guaiFENesin DM *SUGAR FREE* 5ML**DIABETIC TUSSIN DM PO SCH (11:26)
[2024-06-04] MEDS: SOD POLYSTYRENE SULFONATE SUSP 15GM 60ML UD PO ONE ×2 (11:26→17:18)
[2024-06-04] MEDS ORDERED: methylPREDNISolone 125MG 2ML VIAL IV SCH (14:00)
[2024-06-04 14:02] LABS: BLOOD UREA NITROGEN 20 MG/DL (9-23); CALCIUM LEVEL 9.5 MG/DL (8.3-10.6); CARBON DIOXIDE LEVEL 28 MMOL/L (20-31); CHLORIDE LEVEL 101 MMOL/L (98-107); CREATININE FOR GFR 0.87 MG/DL (0.70-1.30); GLOMERULAR FILTRATION RATE > 60.0 (>42); GLUCOSE, FASTING 199 MG/DL (74-106); POTASSIUM SERUM 5.2 MMOL/L (3.5-5.1); SODIUM LEVEL 139 MMOL/L (136-145)
[2024-06-05] VITALS (24 sets, daily range): BP systolic 103–141; BP diastolic 59–98; TEMP 96.1–98.5; O2SAT 90–100
[2024-06-05 06:05] LABS: BASO % 0.2 % (0.0-1.0); HEMATOCRIT 46.2 % (42.0-52.0); HEMOGLOBIN 15.2 g/dl (13.5-17.5); LYMPH # 0.6 10^3/uL (1.5-5.0); MEAN CORPUSCULAR HEMOGLOBIN 33.9 pg (27.0-33.0); MEAN CORPUSCULAR HGB CONC 32.9 g/dl (32.0-36.5); MEAN CORPUSCULAR VOLUME 103.1 fl (80.0-96.0); MONO # 0.3 10^3/uL (0.0-0.8); MONO % 2.1 % (2.0-8.0); NEUTROPHILS # 13.1 10^3/uL (1.5-8.5); NEUTROPHILS % 92.4 % (36.0-66.0); PLATELET COUNT, AUTOMATED 232 10^3/uL (150-450); RED BLOOD COUNT 4.48 10^6/uL (4.30-6.10); WHITE BLOOD COUNT 14.1 10^3/uL (4.0-10.0)
[2024-06-05 06:35] LABS: BLOOD UREA NITROGEN 26 MG/DL (9-23); CALCIUM LEVEL 8.9 MG/DL (8.3-10.6); CARBON DIOXIDE LEVEL 28 MMOL/L (20-31); CHLORIDE LEVEL 100 MMOL/L (98-107); CREATININE FOR GFR 1.18 MG/DL (0.70-1.30); GLOMERULAR FILTRATION RATE > 60.0 (>42); GLUCOSE, FASTING 255 MG/DL (74-106); POTASSIUM SERUM 4.2 MMOL/L (3.5-5.1); SODIUM LEVEL 141 MMOL/L (136-145)
[2024-06-05 07:51] LABS: VITAMIN B12 LEVEL 470 PG/ML (211-911)
[2024-06-05] MEDS: AZITHROMYCIN 250MG TABLET PO SCH (10:11)
[2024-06-05] MEDS: predniSONE 20 MG TAB PO SCH (13:16)
[2024-06-05 17:15] LABS: BLOOD UREA NITROGEN 30 MG/DL (9-23); CALCIUM LEVEL 9.2 MG/DL (8.3-10.6); CARBON DIOXIDE LEVEL 30 MMOL/L (20-31); CHLORIDE LEVEL 100 MMOL/L (98-107); CREATININE FOR GFR 1.06 MG/DL (0.70-1.30); GLOMERULAR FILTRATION RATE > 60.0 (>42); GLUCOSE, FASTING 159 MG/DL (74-106); POTASSIUM SERUM 4.3 MMOL/L (3.5-5.1); SODIUM LEVEL 141 MMOL/L (136-145)
[2024-06-06] VITALS (15 sets, daily range): BP systolic 120–139; BP diastolic 71–75; TEMP 98.5–98.6; O2SAT 90–98
[2024-06-06 06:23] LABS: BASO % 0.1 % (0.0-1.0); HEMATOCRIT 44.5 % (42.0-52.0); HEMOGLOBIN 14.7 g/dl (13.5-17.5); LYMPH # 0.7 10^3/uL (1.5-5.0); MEAN CORPUSCULAR HEMOGLOBIN 34.1 pg (27.0-33.0); MEAN CORPUSCULAR VOLUME 103.2 fl (80.0-96.0); MONO # 0.8 10^3/uL (0.0-0.8); MONO % 5.5 % (2.0-8.0); NEUTROPHILS # 12.6 10^3/uL (1.5-8.5); NEUTROPHILS % 88.3 % (36.0-66.0); PLATELET COUNT, AUTOMATED 261 10^3/uL (150-450); RED BLOOD COUNT 4.31 10^6/uL (4.30-6.10); WHITE BLOOD COUNT 14.2 10^3/uL (4.0-10.0)
[2024-06-06 06:40] LABS: BLOOD UREA NITROGEN 36 MG/DL (9-23); CARBON DIOXIDE LEVEL 32 MMOL/L (20-31); CHLORIDE LEVEL 99 MMOL/L (98-107); CREATININE FOR GFR 1.17 MG/DL (0.70-1.30); GLOMERULAR FILTRATION RATE > 60.0 (>42); GLUCOSE, FASTING 278 MG/DL (74-106); POTASSIUM SERUM 4.7 MMOL/L (3.5-5.1); SODIUM LEVEL 140 MMOL/L (136-145)
[2024-06-06] MEDS ORDERED: MUCI600T31 PO (11:13)
[2024-06-06] MEDS ORDERED: OSEL75CA2 PO (11:13)
[2024-06-06] MEDS ORDERED: PRED10TA2 PO (11:13)
[2024-06-06] MEDS ORDERED: PRED20TA PO (11:25)
== END 2024-06-06 13:59 | disposition home health service (06) | DRG 191 ==
LOC: M ED 17:25 → EDBD 17:25 → M ED INP 22:07 → M PCU 06-05 01:07
PROVIDERS: ADMIT Student in an Organized Health Care Education/Training Program; ATTEND Internal Medicine
DX: J44.1 Chronic obstructive pulmonary disease with (acute) exacerbation (principal); J96.11 Chronic respiratory failure with hypoxia; I50.32 Chronic diastolic (congestive) heart failure; E11.9 Type 2 diabetes mellitus without complications; E78.5 Hyperlipidemia, unspecified; I11.0 Hypertensive heart disease with heart failure; G89.29 Other chronic pain; M54.9 Dorsalgia, unspecified; F32.A Depression, unspecified; E03.9 Hypothyroidism, unspecified; J10.1 Influenza due to other identified influenza virus with other respiratory manifestations; E87.5 Hyperkalemia; I25.10 Atherosclerotic heart disease of native coronary artery without angina pectoris; F41.9 Anxiety disorder, unspecified; Z99.81 Dependence on supplemental oxygen; Z87.891 Personal history of nicotine dependence; Z79.01 Long term (current) use of anticoagulants; Z79.82 Long term (current) use of aspirin; Z79.84 Long term (current) use of oral hypoglycemic drugs; Z79.890 Hormone replacement therapy; Z79.899 Other long term (current) drug therapy

== ENCOUNTER → 2024-06-17 | Outpatient (REF) | payer MEDICARE, OTHER ==
[~2024-06-17] MED LIST changes: +ALBU8.5H INH; +CEFD1CAP9 PO; +DILT1TAB12 PO; +DULO1CAP6 PO; +FARX1TAB3 PO; +FLUT1BLS6 INH; +FURO80TA2 PO; +JANU100T PO; +MUCI600T31 PO; +OSEL75CA2 PO; +SEMA1PEN2 INJ
[2024-06-17 18:06] LABS: ALBUMIN 2.9 G/DL (3.2-5.2); ALKALINE PHOSPHATASE 64 U/L (40-129); ALT/SGPT 21 U/L (7.0-40); AST/SGOT 15 U/L (<34); BLOOD UREA NITROGEN 9 MG/DL (9-23); CARBON DIOXIDE LEVEL 33 MMOL/L (20-31); CHLORIDE LEVEL 100 MMOL/L (98-107); CREATININE FOR GFR 0.94 MG/DL (0.70-1.30); GLOMERULAR FILTRATION RATE > 60.0 (>42); GLUCOSE, FASTING 158 MG/DL (74-106); SODIUM LEVEL 142 MMOL/L (136-145); TOTAL PROTEIN 6.4 G/DL (5.7-8.2)
[2024-06-17 18:09] LABS: FREE T4 1.22 NG/DL (0.89-1.76)
[2024-06-17 18:10] LABS: THYROID STIMULATING HORMONE 2.026 uIU/ML (0.55-4.78)
[2024-06-17 18:14] LABS: HEMATOCRIT 39.8 % (42.0-52.0); HEMOGLOBIN 12.8 g/dl (13.5-17.5); MEAN CORPUSCULAR HEMOGLOBIN 34.9 pg (27.0-33.0); MEAN CORPUSCULAR HGB CONC 32.2 g/dl (32.0-36.5); MEAN CORPUSCULAR VOLUME 108.4 fl (80.0-96.0); PLATELET COUNT, AUTOMATED 110 10^3/uL (150-450); RED BLOOD COUNT 3.67 10^6/uL (4.30-6.10); WHITE BLOOD COUNT 11.6 10^3/uL (4.0-10.0)
== END ==
LOC: M SFHCADAM 11:19
PROVIDERS: ATTEND Family Medicine
DX: E11.22 Type 2 diabetes mellitus with diabetic chronic kidney disease (principal); E03.9 Hypothyroidism, unspecified; Z86.718 Personal history of other venous thrombosis and embolism

== ENCOUNTER → 2024-10-06 | Outpatient (CLI) | payer MEDICARE, OTHER ==
[~2024-10-06] MED LIST changes: -AMIO200T49 PO; +AMIO200T54 PO
== END ==
LOC: M PLARAD 07:30
PROVIDERS: ATTEND Family Medicine
DX: R91.8 Other nonspecific abnormal finding of lung field (principal)
CPT/HCPCS: 78816; A9552

== ENCOUNTER → 2024-10-23 | Outpatient (REF) | payer MEDICARE, OTHER | LOC: M LAB REF 16:45 | PROVIDERS: ATTEND Internal Medicine Pulmonary Disease | DX: R91.8 Other nonspecific abnormal finding of lung field (principal) ==

== ENCOUNTER → 2024-12-17 | Outpatient (REF) | payer MEDICARE, OTHER ==
[2024-12-17 18:46] LABS: CALCIUM LEVEL 9.3 MG/DL (8.3-10.6); CARBON DIOXIDE LEVEL 28.0 MMOL/L (20-31); CHLORIDE LEVEL 105.0 MMOL/L (98-107); CREATININE FOR GFR 1.13 MG/DL (0.70-1.30); GLOMERULAR FILTRATION RATE 69.5 (>42); POTASSIUM SERUM 5.0 MMOL/L (3.5-5.1); SODIUM LEVEL 142.0 MMOL/L (136-145)
[2024-12-17 19:06] LABS: ESTIMATED AVERAGE GLUCOSE 151.0 MG/DL (60-110)
== END ==
LOC: M SFHCADAM 13:00
PROVIDERS: ATTEND Family Medicine
DX: E11.22 Type 2 diabetes mellitus with diabetic chronic kidney disease (principal)

== ENCOUNTER → 2025-03-18 | Outpatient (REF) | payer MEDICARE, OTHER ==
[2025-03-18 17:40] LABS: PLATELET COUNT, AUTOMATED 337 10^3/uL (150-450)
[2025-03-18 17:45] LABS: ALT/SGPT 17.0 U/L (7.0-40); AST/SGOT 19.0 U/L (<34); CALCIUM LEVEL 9.4 MG/DL (8.3-10.6); CARBON DIOXIDE LEVEL 28.0 MMOL/L (20-31); CHLORIDE LEVEL 101.0 MMOL/L (98-107); CHOLESTEROL LEVEL 131.0 MG/DL (<200); CHOLESTEROL RISK RATIO 2.01 (<5); CREATININE FOR GFR 1.01 MG/DL (0.70-1.30); GLOMERULAR FILTRATION RATE 79.0 (>42); LDL CHOLESTEROL 48.8 MG/DL (<100); NON-HDL-C 66.0 MG/DL; POTASSIUM SERUM 5.4 MMOL/L (3.5-5.1); SODIUM LEVEL 138.0 MMOL/L (136-145); TRIGLYCERIDES LEVEL 86.0 MG/DL (<150)
[2025-03-18 17:47] LABS: FREE T4 1.11 NG/DL (0.89-1.76)
[2025-03-18 18:22] LABS: ESTIMATED AVERAGE GLUCOSE 157.0 MG/DL (60-110)
== END ==
LOC: M SFHCADAM 14:29
PROVIDERS: ATTEND Family Medicine
DX: I48.91 Unspecified atrial fibrillation (principal); E78.2 Mixed hyperlipidemia; E03.9 Hypothyroidism, unspecified; E11.22 Type 2 diabetes mellitus with diabetic chronic kidney disease; I50.32 Chronic diastolic (congestive) heart failure; I27.81 Cor pulmonale (chronic)